=== PATIENT | male | born 1950 | race African-American/Black ===

== ENCOUNTER 2024-09-21 12:01 | Outpatient (CLI) | payer MEDICARE, OTHER, SELFPAY ==
--- NOTE | ~2024-09-21 | PE_ITS ---
EXAMINATION: PET_PETPSMAST_PT DATE: 09/21/2024 14:44 INDICATION: Prostate cancer TECHNIQUE: 5.653 mCi of Illucix Ga-68([id number]) was administered i.v. Low dose computed cristin graphy (CT) images were acquired from the base of the brain to the base of the brain to the proximal thighs for attenuation correction and anatomic localization. Positron emission tomography (PET) image s were acquired in the same distribution beginning 91 minutes after injection. Images including fused PET/CT images were reconstructed in axial, coronal, and sagittal planes. Automated exposure control technique was employed. The dose-length product was 1161.49mGy-cm. COMPARISON: None FINDINGS: Head/neck: Typical pattern of symmetric physiologic increased activity in the lacrimal, parotid and submandibula r glands as well as along the mucosa of the nasal and oral cavities, pharynx and hypopharynx. No path ologically enlarged cervical lymphadenopathy or suspicious foci of increased uptake in the visualized head or neck. Chest: Respiratory motion in the lungs. No suspicious pulmonary nodules, pneumonia, pulmonary edema or other pulmonary infiltrates. No pleural effusion. Cardiomegaly. No pericardial effusion. Thoracic aorta is normal in caliber. No pathologically enlarged or PSMA avid thoracic lymphadenopathy. Abdomen/pelvis/proximal thighs: Physiologic renal accumulation and excretion of activity in the kidneys, bladder and along portions o f ureters. Prostatomegaly measuring 4.9 x 4.1 cm. Small focus of asymmetric mild increased uptake at the left posterior aspect of the enlarged prostate with maximal SUV of 4.9 likely representing the si te of the reported primary prostate cancer. Normal degree and slightly heterogenous pattern of increa sed uptake throughout the liver and spleen without radiologic correlate or dominant PSMA avid lesion. The gallbladder, pancreas and bilateral adrenal glands are normal. Moderate uptake scattered through out the bowels with typical duodenal and proximal jejunal predominance and without radiologic correla te, also likely physiologic. Normal appendix. Moderate-sized fat-containing umbilical hernia. No othe r abnormal foci of increased uptake or pathologically enlarged lymphadenopathy in the abdomen, pelvis or proximal thighs. Musculoskeletal: Mild lumbar levocurvature. Severe spondylosis in the cervical, thoracic and lumbar spine. No suspicio us lytic, blastic or abnormally PSA may avid bone lesions to suggest metastatic disease. IMPRESSION: 1. Small focus of mild uptake at the left posterior aspect of the enlarged prostate consistent with p rimary prostate cancer. No evident metastatic disease. Reviewed, dictated and finalized at location B. IMPRESSION: 1. Small focus of mild uptake at the left posterior aspect of the enlarged pros bryant consistent with primary prostate cancer. No evident metastatic disease.
--- OUTSIDE RECORDS SUMMARY | 2024-09-21 13:24 | XMS_ITS | Encounter Summary ---
Author Organization [facility] Facility Care Team Providers Care Installation Coordinator Name Role Phone Sergei Mello MD Primary Care Provider Tressa Araiza [facility] Unavailable [phone] Encounter Details Date Type Department Care Team (Latest Contact Info) Description 09/06/2017 Orders Only [facility] CLINCONV ProviderJohnson MD [address] [place] [id number] Social History Tobacco Use Types Packs/Day Years Used Date Smoking Tobacco: Never Assessed Sex and Gender Information Value Date Recorded Sex Assigned at Not on file Legal Sex Male 1:24 AM GROUP PRACTICE PEDIATRICIAN Gender Identity Male 08/11/2020 3:44 PM GROUP PRACTICE PEDIATRICIAN Sexual Orientation Straight 08/11/2020 3: 44 PM GROUP PRACTICE PEDIATRICIAN documented as of this encounter Plan of Treatment Not on file documented as of this encounter Procedures Procedure Name Priority Date/Time Associated Diagnosis Comments COLONOSCOPY - SCAN 09/06/2017 12 :00 AM CDT documented in this encounter Results * COLONOSCOPY - SCAN (09/06/2017 12:00 AM CDT) Narrative 09/06/2017 12:00 AM CDT Ordered by an unspecified provider. us Historical Provider Final Res ult documented in this encounter Visit Diagnoses Not on filedocumented in this encounter Care Teams Installation Coordinator Relationship Specialty Start Date End Date Sergei Mello MD [address] [place] [address] PCP - General 08/12/18 Tressa Araiza, REGISTERED VETERINARY TECHNICIAN [address] [place] [address] ACO Care Credit Risk Officer 07/08/20 07/14/20 documented as of this encounter
--- OUTSIDE RECORDS SUMMARY | 2024-09-21 13:24 | XMS_ITS | Clinical Summary ---
Author Organization [facility] Address [address] [place] [address] Care Team Providers Care Excelsior Machine Operator Name Role Phone Unavailable Primary Care Provider Unavailabl e Source Comments [facility],non-owned Affiliates and Associated Physician Practices is amultiple site organization consisting of ambulatory clinics and hospital sitesin [place], [place], [place] and [place]. This disclosure is being madepursuant to the Care Everywhere program and may not contain all information available regarding this patient. Last updated 18.[facility] Social History Tobacco Use Types Packs/Day Years Used Date Smoking Tobacco: Never Assessed Sex and Gender Information Value Date Recorded Sex Assigned at Not on file Gender Identity Not on file Sexual Orientation Not on file Plan of Treatment Health Maintenance Due Date Last Done Comments COLOGUARD (AGES 45-75) - COL ON CA SCREENING 1952 COLON MONITORING 1952 COLONOSCOPY - COLON CA SCREENING 1952 CT COLONOGRAPHY - COLON CA SCREENING 1950 Colorectal Cancer Screening 1952 FIT - COLON CA SCREENING 1952 FLEX SIG - COLON CA SCREENING 1952 LIPID TESTING 1952 MEDICARE AWV 12 MONTHS 1952 HEPATITIS C SCREENING 07/02/1970 DTAP/TDAP/TD VACCINES (1 - Tdap) 1971 PNEUMOCOCCAL VACCINE 50+ (1 of 1 - PCV) 2002 ZOSTER VACCINE (1 of 2) 2002 COVID-19 VACCINE ( - 2023-2 5 season) 2024 INFLUENZA VACCINE (#1) 2024 DEPRESSION SCREENING 06/24/2024 Respiratory Syncytial Virus (RSV) Vaccine Pt: or over 60 yrs (1 - 1-dose 75+ series) 2027 HEPATITIS B VACCINE Aged Out No longe r eligible based on patient's age to complete this topic HIB VACCINE Aged Out No longer eligi ble based on patient's age to complete this topic HPV VACCINE Aged Out No longer eligi ble based on patient's age to complete this topic MENINGOCOCCAL (Group B) VACC INE SHARED DECISION-MAKING Aged Out No longer eligibl e based on patient's age to complete this topic MENINGOCOCCAL GROUPS A/C/Y/W VACCINE Aged Out No longer eligible b ased on patient's age to complete this topic Stefano Thorne Personal/Famil y Self 1950 [address] [place] [address]
--- OUTSIDE RECORDS SUMMARY | 2024-09-21 13:24 | XMS_ITS | Encounter Summary ---
Author Organization [facility] Address [address] [place] [place] [address] Care Team Providers Care Sound Art Instructor Name Role Phone Unavailable Primary Care Provider Unavailabl e Encounter Details Date Type Department Care Team (Late st Contact Info) Description 11/15/2022 Lab Requisition [facility] [address] [facility] [place] [id number] Jesus Sanchez MD [address] [place] [address] Social History Tobacco Use Types Packs/Day Years Used Date Smoking Tobacco: Never Assessed Sex and Gender Information Value Date Recorded Sex Assigned at Not on file Gender Identity Not on file Sexual Orientation Not on file documented as of this encounter Plan of Treatment Not on file documented as of this encounter Procedures Procedure Name Priority Date/Time Associated Diagnosis Comments DERMATOPATHOLOGY Routine 11/13/2022 12:0 0 AM CDT documented in this encounter Results * DERMATOPATHOLOGY (11/13/2022 12:00 AM CDT) Case Report Dermatopathology Report Case: [id number] Authorizing Provider: Jesus Sanchez MD Collected: 11/13/2022 12:00 AM Ordering Location: [facility] Received: 11/15/2022 10:42 AM Pathologist: Hope Hanson MD Specimen: Skin, left index 3 5:55 PM CDT DERMATOPATHOLOGY LABORATORY Final Diagnosis Specimen A. 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 The specimen consists of a shave biopsy measuring 8x8x3 mm. Jar 0. 3 5:55 PM [facility] DERMATOPATHOLOGY LABORATORY Microscopic Description Specimen A. SKIN, left index: Sections show a proliferation of blood vessels in lobules lined by uniform endothelial cells and by fibrous septa. The stroma is edematous and contains a mixed inflammatory cell infiltrate. The overlying epidermis is eroded. 3 5:55 PM T DERMATOPATHOLOGY LABORATORY Disclaimer An external and internal positive and negative controls are appropriate for the histochemical, immunohistochemical and immunofluorescence stain(s) in this case (if any), except where stated explicitly. The performance characteristics of the stain(s) cited in this report were developed and its performance characteristic determined by the Dermatopathology Laboratory at [facility], directed by Dr. Octavio Maravilla. These tests need not be, and therefore are not, approved by the [place] Food and Drug Administration. The tests are used for clinical purposes. Billing Codes Specimen Charges Stain Charges 02249 1 3 5:55 PM CDT DERMATOPATHOLOGY LABORATORY Embedded Images 3 5:55 PM T DERMATOPATHOLOGY LABORATORY Pathology/Cytolog y TISSUE SPECIMEN FROM SKIN / Unknown 11/13/2022 11/15/2022 10:42 AM CDT Jesus Sanchez MD LAB - PATHOLOGY/CYTO LOGY ORDERABLES DERMATOPATHOLOGY LABORATORY [facility] - Department of Dermatology [address], [address] [phone] documented in this encounter Visit Diagnoses Not on filedocumented in this encounter
--- OUTSIDE RECORDS SUMMARY | 2024-09-21 13:24 | XMS_ITS | Clinical Summary ---
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 Name Role Phone Sergei Mello MD Primary Care Provider Allergies Active Allergy Reactions Criticality Noted Date Comments Hydrocodone-Acetaminophen Unknown 09/24/2018 Morphine Other (See comments) Low 02/17/2019 Scratching Oxycodone Hcl Other (See comments) Low 09/24/2018 Scratching Penicillin V Potassium Palpitations Low 09/24/2018 Propoxyphene N-Acetaminophen Other (See comments) Low 09/24/2018 Dry mouth Medications cholecalcifer ol (VITAMIN D-3) 1,000 unit tablet 1 tablet (1,000 Units total) daily Active aspirin 81 mg enteric coated tablet Take 1 tablet (81 mg total) by mouth daily Active triamcinolone (KENALOG) 0.1 % cream 02/16/20 21 Active mupirocin (BACTROBAN) 2 % ointment 03/21/20 21 Active fluticasone propionate (FLONASE) 50 mcg/actuation nasal sprayIndicati ons:Nasal congestion Administer 2 sprays into each nostril daily 3 each 3 03/22/20 22 Active vardenafiL (LEVITRA) 20 mg tablet Take 1 tablet PO prn about 1 hour prior to intercourse. Do not take more than 1 dose in a day. 5 tablet 10/18/19 23 Active Refresh Celluvisc 1 % dropperette,g el Administer 1 drop into both eyes 2 (two) times a day 3 each 3 11/17/19 23 Active Lotemax 0.5 % drops,gel Administer 1 drop into both eyes 2 (two) times a day 3 mL 11/17/19 23 Active clobetasoL (TEMOVATE) 0.05 % ointment Apply topically 2 (two) times a day 30 g 2 01/24/20 23 Active cetirizine (ZyrTEC) 10 mg tablet Take 1 tablet (10 mg total) by mouth daily 90 tablet 1 03/30/20 24 Active furosemide (LASIX) 20 mg tablet Take 1 tablet (20 mg total) by mouth daily 90 tablet 1 03/30/20 24 Active empagliflozin (Jardiance) 25 mg tabletIndicat ions:type 2 diabetes mellitus Take 1 tablet (25 mg total) by mouth daily 90 tablet 1 03/30/20 24 Active telmisartan-h ydrochlorothi azid (MICARDIS HCT) 80-12.5 mg per tablet Take 1 tablet by mouth daily 90 tablet 1 04/01/20 24 Active docusate sodium (COLACE) 100 mg capsule Take 1 capsule (100 mg total) by mouth 2 (two) times a day as needed for constipation 180 capsule 1 04/07/20 24 Active Additional Information Patient not taking.Reported on 08/28/2024 blood glucose diagnostic (glucose blood) stripIndicati ons:Type 2 diabetes mellitus with stage 2 chronic kidney disease, without long-term current use of insulin (HCC) Use to check blood sugar daily 200 each 3 04/20/20 24 025 Active lancets miscIndicatio ns:Type 2 diabetes mellitus with stage 2 chronic kidney disease, without long-term current use of insulin (HCC) Use to check blood sugar daily 200 each 3 04/20/20 24 Active blood-glucose meter miscIndicatio ns:Type 2 diabetes mellitus with stage 2 chronic kidney disease, without long-term current use of insulin (HCC) Use to check blood sugar twice daily 1 each 04/22/20 24 Active omeprazole (PriLOSEC) 40 mg capsule Take 1 capsule (40 mg total) by mouth daily 90 capsule 1 05/04/20 24 Active montelukast (SINGULAIR) 10 mg tablet Take 1 tablet (10 mg total) by mouth daily 90 tablet 1 05/04/20 24 025 Active terbinafine (LamiSIL) 250 mg tablet Take 1 tablet (250 mg total) by mouth daily 90 tablet 05/04/20 24 Active allopurinoL (ZYLOPRIM) 300 mg tablet Take 1 tablet (300 mg total) by mouth daily 90 tablet 1 06/01/20 24 Active pramipexole (MIRAPEX) 0.5 mg tablet Take 1 tablet (0.5 mg total) by mouth nightly 90 tablet 1 06/01/20 24 Active simvastatin (ZOCOR) 40 mg tablet Take 1 tablet (40 mg total) by mouth nightly 90 tablet 06/22/20 24 Active zolpidem (AMBIEN) 10 mg tablet Take 1 tablet (10 mg total) by mouth daily 90 tablet 06/22/20 24 025 Active Dupixent Pen pen injector 08/28/19 25 Active ALPRAZolam (XANAX) 0.5 mg tablet Take 1 tablet (0.5 mg total) by mouth daily as needed for anxiety 90 tablet 09/01/19 25 Active traMADoL (ULTRAM) 50 mg tablet Take 1 tablet (50 mg total) by mouth every 12 (twelve) hours as needed for pain 60 tablet 2 09/01/19 25 025 Active pregabalin (LYRICA) 150 mg capsule Take 1 capsule (150 mg total) by mouth 2 (two) times a day 180 capsule 1 09/02/19 25 025 Active celecoxib (CeleBREX) 200 mg capsule Take 1 capsule (200 mg total) by mouth daily 90 capsule 1 09/02/19 25 Active tirzepatide (Mounjaro) 12.5 mg/0.5 mL pen injector injection Inject 0.5 mL (12.5 mg total) under the skin once a week 2 mL 5 09/02/19 25 Active linaCLOtide (Linzess) 290 mcg capsule TAKE 1 CAPSULE DAILY 100 capsule 1 09/14/19 25 Active traMADoL (ULTRAM) 50 mg tablet Take 1 tablet (50 mg total) by mouth every 12 (twelve) hours as needed for pain 60 tablet 2 02/25/20 24 025 Discontinued(R eorder) celecoxib (CeleBREX) 200 mg capsule Take 1 capsule (200 mg total) by mouth daily 90 capsule 1 02/27/20 24 025 Discontinued(R eorder) pregabalin (LYRICA) 150 mg capsule Take 1 capsule (150 mg total) by mouth 2 (two) times a day 180 capsule 1 02/27/20 24 025 Discontinued(R eorder) tirzepatide (Mounjaro) 12.5 mg/0.5 mL pen injector Inject 12.5 mg under the skin once a week 2 mL 5 03/11/20 24 025 Discontinued(R eorder) linaCLOtide (Linzess) 290 mcg capsule TAKE 1 CAPSULE DAILY 90 capsule 06/15/20 24 025 Discontinued ALPRAZolam (XANAX) 0.5 mg tablet Take 1 tablet (0.5 mg total) by mouth daily as needed for anxiety 90 tablet 08/03/19 25 025 Discontinued(R eorder) Active Problems Problem Noted Date Diagnosed Date Bilateral hand numbness 07/21/2024 Assessment & Plan (07/21/2024 9:55 AM [employer]FF MEMBER): Burning sensation in both hands for about 3 weeks. Exam is normal. Will obtain nerve conduction study of both hands for further evaluation. It is possible he has peripheral neuropathy secondary to diabetes or carpal tunnel syndrome. He is maintained on Lyrica 150 mg b.i.d.. Acute alteration in mental status 05/15/2023 Uncontrolled stage 2 hypertension 05/15/2023 Morbid obesity 05/15/2023 Assessment & Plan (04/20/2024 7:53 AM CDT): BMI Follow-up includes: nutrition counseling. The patient was advised to exercise 5 times a week for 30 minutes each time. We discussed low calorie diet. Discussed lifestyle changes. Assessment & Plan (12/09/2023 1:00 PM CDT): BMI Follow-up includes: nutrition counseling. The patient was advised to exercise 5 times a week for 30 minutes each time. We discussed low calorie diet. Discussed lifestyle changes. Assessment & Plan (08/15/2023 3:59 PM [employer]FF MEMBER): BMI Follow-up includes: nutrition counseling. The patient was advised to exercise 5 times a week for 30 minutes each time. We discussed low calorie diet. Discussed lifestyle changes. Respiratory failure with hypercapnia 05/15/2023 Acute on chronic respiratory failure with hypoxia and hypercapnia 05/15/2023 Dyslipidemia 05/15/2023 Assessment & Plan (07/21/2024 7:50 AM [employer] MEMBER): Continue low-fat diet Assessment & Plan (04/20/2024 7:52 AM CDT): Continue low-fat diet Assessment & Plan (12/09/2023 1:00 PM CDT): Lipid profile is well controlled. Triglyceride is low. Will stop fenofibrate. Continue low fat diet Assessment & Plan (08/15/2023 3:57 PM [employer] MEMBER): Lipid profile is well controlled. Triglyceride is low. Will stop fenofibrate. 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 The patient has CPAP at 12 cm water pressure. The patient and I discussed the inspire in depth. The patient would have to find caregiver for his prior to doing any sleep study/evaluation for inspire. He continues to lose weight and exercise. Assessment & Plan (07/21/2024 7:50 AM [employer]FF MEMBER): Patient uses CPAP machine on regular basis Assessment & Plan (12/09/2023 1:00 PM CDT): Patient uses CPAP machine on regular basis Assessment & Plan (08/15/2023 3:58 PM [employer]FF MEMBER): Patient uses CPAP machine on regular basis Assessment & Plan (08/07/2023 2:04 PM [employer]FF MEMBER): The patient and I discussed the inspire. The patient was informed that he would need a nocturnal polysomnogram to qualify for evaluation for inspire and I have offered an in-home nocturnal polysomnogram due to his 40 lb weight loss. I encouraged the patient to resume CPAP therapy at 12 cm water pressure any time that he is sleeping. I also encouraged the patient to move the CPAP to his preferred sleeping location. The patient is currently caring for his who is on hospice. DME is [employer]. The patient is going to try to resume CPAP therapy. Diabetes mellitus with stage 1 chronic kidney di sease 05/15/2023 Assessment & Plan (07/21/2024 7:50 AM [employer] ST[employer]FF MEMBER): Continue current medications, discussed low carbohydrate diet, advised to exercise on regular basis, advised to have annual eye exam. We will continue to monitor. Assessment & Plan (04/20/2024 7:52 AM CDT): Continue current medications, discussed low carbohydrate diet, advised to exercise on regular basis, advised to have annual eye exam. We will continue to monitor. Assessment & Plan (12/09/2023 12:59 PM CDT): Diabetes is well controlled. Hemoglobin A1c is 5.9. We will stop Januvia and continue Mounjaro and Jardiance Assessment & Plan (08/15/2023 3:57 PM [employer]FF MEMBER): Diabetes is well controlled. Hemoglobin A1c is 5.9. We will stop Januvia and continue Mounjaro and Jardiance Onychomycosis 05/15/2023 Assessment & Plan (05/15/2023 2:27 PM [employer] ST[employer]FF MEMBER): Patient with onychomycosis of toenails. He likes treatment. He tried [id number] lotion that did not help. Will start him on Lamisil 250 mg daily for few months. Side effects explained. Will obtain liver function test before next visit. Idiopathic chronic gout without tophus 3 Viral wart on finger 10/31/2022 Assessment & Plan (10/31/2022 4:35 PM CDT): Patient with a lesion on the dorsal aspect of the left index finger. It could be a wart. There was slight bleeding. Pressure was applied and bleeding stopped. The wound was wrapped. Patient received Tdap vaccine. Will make him a referral to see teletype mechanic for further evaluation of that lesion. Was advised to keep holding aspirin for the time being. Hip pain, chronic, right 07/23/2022 Assessment & Plan (07/23/2022 5:03 PM [employer]FF MEMBER): Will make him a referral to see a chiropractor for possible tendinitis of the right hip. Primary insomnia 12/20/2021 Assessment & Plan (05/15/2023 12:57 PM [employer] STAFF MEMBER): Controlled on Ambien Assessment & Plan (12/20/2021 10:16 AM CDT): Controlled on Ambien Type 2 diabetes mellitus wit h stage 2 chronic kidney disease, without long-term current use of insulin 12/20/2021 Assessment & Plan (07/21/2024 7:51 AM [employer]FF MEMBER): As above Assessment & Plan (12/09/2023 1:00 PM CDT): As above Assessment & Plan (05/15/2023 2:28 PM [employer]FF MEMBER): As above Assessment & Plan (01/23/2023 1:11 PM CDT): As above Assessment & Plan (10/18/2022 2:11 PM CDT): As above Assessment & Plan (07/23/2022 1:11 PM [employer] STAFF MEMBER): Continue current medications, discussed low carbohydrate diet, advised to exercise on regular basis, advised to have annual eye exam. We will continue to monitor. Assessment & Plan (12/20/2021 2:02 PM CDT): Stop Januvia and start Farxiga 10 mg daily for renal protection. Advised to increase fluid intake. Continue to have annual eye exam. Continue to watch diet. Hordeolum externum of left lower eyelid 09/20/19 Assessment & Plan (09/19/2021 1:28 PM CDT): Patient with small stye in the left lower eyelid. He will be started on tobramycin ointment 3 times daily for 7 days Bilateral leg edema 09/19/2021 Assessment & Plan (08/15/2023 3:57 PM [employer] STAFF MEMBER): Controlled on Lasix p.r.n. Assessment & Plan (09/19/2021 1:29 PM CDT): Patient will be started on Lasix 20 mg daily. 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 He has had some modification with sleep apnea machine at this point cites no cognitive issues. He has a normal cognitive examination at this time. Observation from the neurological standpoint would be appropriate. I will see him back in the office on an as-needed basis. Assessment & Plan (07/15/2020 12:13 PM [employer] STAFF MEMBER): Resolved Acute on chronic respiratory failure with hypoxia and hypercapnia 07/15/2020 Assessment & Plan (07/15/2020 12:13 PM [employer] STAFF MEMBER): Resolved and the patient uses CPAP machine on regular basis Abnormal MRI of head 07/15/2020 Assessment & Plan (12/12/2020 3:18 PM CDT): Repeated MRI of the brain was unremarkable. I discussed with the patient repeating the MRI again but he stated that he feels fine and he has no neurological complaints like dizziness or headache. I agree with not repeating the MRI as the patient is asymptomatic. Assessment & Plan (07/15/2020 12:13 PM [employer] ST[employer]FF MEMBER): Repeat MRI in 1 month Elevated PSA 06/09/2020 Assessment & Plan (07/21/2024 9:56 AM [employer]ENN[employer] STAFF MEMBER): PSA continued to be elevated at 6.9. We discussed options again with the patient. He elected to see a urologist because of persistent elevation. Will make him a referral Assessment & Plan (04/20/2024 2:41 PM CDT): Patient has elevated PSA. We discussed options including observation and repeating the test in few months or referral to see a urologist and he elected observation Assessment & Plan (12/09/2023 1:00 PM CDT): Followed by the urologist Assessment & Plan (10/18/2022 2:10 PM CDT): Followed by the urologist Assessment & Plan (12/20/2021 10:16 AM CDT): PSA in November 2021 was 4.2. Patient is asymptomatic Assessment & Plan (09/19/2021 1:28 PM CDT): PSA 3 months ago was 3.3. Will repeat PSA level in 3 months Assessment & Plan (06/19/2021 12:53 PM [employer] ST[employer]FF MEMBER): PSA level is 3.3 Assessment & Plan (09/08/2020 12:52 PM CDT): PSA is 4.1. Patient is asymptomatic. Will repeat PSA Assessment & Plan (06/09/2020 2:26 PM [employer] STAFF MEMBER): PSA is slightly elevated at 4.1. Patient is asymptomatic. We discussed options and patient elected to continue to monitor the PSA and will repeat the test again in 6 months. Sciatica of left side 03/31/2020 Assessment & Plan (04/18/2020 4:58 PM CDT): The patient will start exercises recommended her see a chiropractor for further management of sciatica. If the pain persist we will consider MRI of the lumbar spine for further evaluation. Assessment & Plan (03/31/2020 4:25 PM CDT): Patient has sciatica. Pamphlets were given. He will start Toradol and prednisone. He received Toradol injection. We will hold Celebrex while taking Toradol. Patient was advised to avoid any lifting or pushing or carrying etc.. Patient will call us for persistent pain or if he develops weakness or incontinence. Hypertensive kidney disease with stage 2 chronic kidney disease 12/09/2019 Assessment & Plan (07/21/2024 7:50 AM [employer] STAFF MEMBER): Continue current medications. Discussed low-salt diet. Discussed exercise on regular basis. Will continue to monitor Assessment & Plan (04/20/2024 7:52 AM CDT): Continue current medications. Discussed low-salt diet. Discussed exercise on regular basis. Will continue to monitor Assessment & Plan (12/09/2023 1:00 PM CDT): Continue current medications. Discussed low-salt diet. Discussed exercise on regular basis. Will continue to monitor Assessment & Plan (08/15/2023 3:58 PM [employer] STAFF MEMBER): Continue current medications. Discussed low-salt diet. Discussed exercise on regular basis. Will continue to monitor Assessment & Plan (05/15/2023 12:56 PM [employer] STAFF MEMBER): Continue current medications. Discussed low-salt diet. Discussed exercise on regular basis. Will continue to monitor Assessment & Plan (10/18/2022 12:52 PM CDT): Continue current medications. Discussed low-salt diet. Discussed exercise on regular basis. Will continue to monitor Assessment & Plan (07/23/2022 1:11 PM [employer] STAFF MEMBER): Continue current medications. Discussed low-salt diet. Discussed exercise on regular basis. Will continue to monitor Assessment & Plan (03/22/2022 12:50 PM CDT): Continue current medications. Discussed low-salt diet. Discussed exercise on regular basis. Will continue to monitor Assessment & Plan (12/20/2021 10:15 AM CDT): Continue current medications. Discussed low-salt diet. Discussed exercise on regular basis. Will continue to monitor Assessment & Plan (09/19/2021 12:54 PM CDT): Continue current medications. Discussed low-salt diet. Discussed exercise on regular basis. Will continue to monitor Assessment & Plan (06/19/2021 12:53 PM [employer] STAFF MEMBER): Continue current medications. Discussed low-salt diet. Discussed exercise on regular basis. Will continue to monitor Assessment & Plan (03/13/2021 3:19 PM CDT): Continue current medications. Discussed low-salt diet. Discussed exercise on regular basis. Will continue to monitor Assessment & Plan (12/12/2020 12:59 PM CDT): Continue current medications. Discussed low-salt diet. Discussed exercise on regular basis. Will continue to monitor Assessment & Plan (09/08/2020 12:52 PM CDT): Continue current medications. Discussed low-salt diet. Discussed exercise on regular basis. Will continue to monitor Assessment & Plan (06/09/2020 2:26 PM [employer] STAFF MEMBER): Continue current medications. Discussed low-salt diet. Discussed exercise on regular basis. Will continue to monitor Assessment & Plan (03/10/2020 12:34 PM CDT): Continue current medications. Discussed low-salt diet. Discussed exercise on regular basis. Will continue to monitor Assessment & Plan (12/09/2019 2:04 PM CDT): Continue current medications. Discussed low-salt diet. Discussed exercise on regular basis. Will continue to monitor Meralgia paresthetica of left side 09/09/2019 Assessment & Plan (09/09/2019 2:37 PM CDT): The patient takes tramadol and gabapentin. He was assured that the symptoms will resolve in few weeks on their own. Nasal congestion 06/30/2019 Dermatitis 06/09/2019 Assessment & Plan (03/10/2020 2:42 PM CDT): Small papular lesions on the right forearm which were diagnosed by the teletype mechanic as scar tissues and he will follow-up with dermatology Assessment & Plan (12/09/2019 2:04 PM CDT): The patient has persistent lesion on the right forearm and will make a referral to see a teletype mechanic for further evaluation Assessment & Plan (06/09/2019 2:11 PM [employer] STAFF MEMBER): The patient will be started on TMC cream twice a day and if his symptoms persist he will call us for dermatology referral. Left wrist pain 02/17/2019 Assessment & Plan (02/17/2019 2:36 PM CDT): Patient has persistent pain in the left wrist area on the radial aspect. Examination was unremarkable except for tenderness. Will obtain MRI of the wrist for further evaluation and will consider referring him back to than surgeon after that. The patient will continue to use the wrist brace. Peripheral neuropathy 11/13/2018 Assessment & Plan (07/23/2022 1:11 PM [employer] STAFF MEMBER): Controlled on Lyrica Assessment & Plan (03/22/2022 12:49 PM CDT): Controlled on Lyrica Assessment & Plan (12/20/2021 10:15 AM CDT): Controlled on Lyrica Assessment & Plan (09/19/2021 12:54 PM CDT): Controlled on Lyrica Assessment & Plan (06/19/2021 3:50 PM [employer] STAFF MEMBER): Controlled on Lyrica Assessment & Plan (12/12/2020 12:59 PM CDT): Controlled on Lyrica Assessment & Plan (03/10/2020 12:34 PM CDT): Stable on gabapentin Assessment & Plan (12/09/2019 2:03 PM CDT): Controlled on gabapentin Assessment & Plan (09/09/2019 2:37 PM CDT): Continue gabapentin Assessment & Plan (06/09/2019 2:11 PM [employer]FF MEMBER): Controlled on gabapentin Assessment & Plan (02/16/2019 8:56 PM CDT): Peripheral neuropathy secondary to diabetes mellitus and controlled on gabapentin Assessment & Plan (11/13/2018 3:10 PM CDT): Controlled on gabapentin Diabetic polyneuropathy asso ciated with type 2 diabetes mellitus 11/13/2018 Assessment & Plan (04/20/2024 7:52 AM CDT): Continue current medications, discussed low carbohydrate diet, advised to exercise on regular basis, advised to have annual eye exam. We will continue to monitor. Assessment & Plan (12/09/2023 1:00 PM CDT): Continue current medications, discussed low carbohydrate diet, advised to exercise on regular basis, advised to have annual eye exam. We will continue to monitor. Assessment & Plan (05/15/2023 2:27 PM [employer] STAFF MEMBER): Hemoglobin A1c is 5.5. Stop glimepiride. Continue Mounjaro patient lost weight. discussed low carbohydrate diet, advised to exercise on regular basis, advised to have annual eye exam. We will continue to monitor. Assessment & Plan (01/23/2023 3:14 PM CDT): Hemoglobin A1c 6.2. Will cut down glimepiride to 2 mg daily. Increase Mounjaro to 7.5 mg once a week, discussed low carbohydrate diet, advised to exercise on regular basis, advised to have annual eye exam. We will continue to monitor. Assessment & Plan (10/18/2022 2:11 PM CDT): Hemoglobin A1c is 8.4. We will start patient on Mounjaro 2.5 mg subQ once a week and increase the dose to 5 mg once a week and side effects were explained. Continue other medications, discussed low carbohydrate diet, advised to exercise on regular basis, advised to have annual eye exam. Patient understands the importance of diet and weight loss to keep his sugar under control. We will continue to monitor. Assessment & Plan (07/23/2022 5:01 PM [employer] STAFF MEMBER): Continue current medications, discussed low carbohydrate diet, advised to exercise on regular basis, advised to have annual eye exam. Patient understands the importance of diet and weight loss to keep his sugar under control. We will continue to monitor. Assessment & Plan (03/22/2022 12:49 PM CDT): Continue current medications, discussed low carbohydrate diet, advised to exercise on regular basis, advised to have annual eye exam. We will continue to monitor. Assessment & Plan (12/20/2021 10:15 AM CDT): Continue current medications, discussed low carbohydrate diet, advised to exercise on regular basis, advised to have annual eye exam. We will continue to monitor. Assessment & Plan (09/19/2021 12:54 PM CDT): Continue current medications, discussed low carbohydrate diet, advised to exercise on regular basis, advised to have annual eye exam. We will continue to monitor. Assessment & Plan (06/19/2021 12:53 PM [employer] ST[employer]FF MEMBER): Continue current medications, discussed low carbohydrate diet, advised to exercise on regular basis, advised to have annual eye exam. We will continue to monitor. Assessment & Plan (03/13/2021 3:19 PM CDT): Continue current medications, discussed low carbohydrate diet, advised to exercise on regular basis, advised to have annual eye exam. We will continue to monitor. Assessment & Plan (09/27/2020 11:24 AM CDT): Patient has antecedent history of diabetic peripheral neuropathy manifested as appendicular numbness and sensory ataxia. His examination is consistent with diagnosis. Assessment & Plan (09/08/2020 12:51 PM CDT): Continue current medications, discussed low carbohydrate diet, advised to exercise on regular basis, advised to have annual eye exam. We will continue to monitor. Assessment & Plan (06/09/2020 2:25 PM [employer] STAFF MEMBER): Continue current medications, discussed low carbohydrate diet, advised to exercise on regular basis, advised to have annual eye exam. We will continue to monitor. Assessment & Plan (09/09/2019 2:37 PM CDT): As above Assessment & Plan (06/09/2019 2:11 PM [employer] ST[employer]FF MEMBER): Continue current medications, discussed low carbohydrate diet, advised to exercise on regular basis, advised to have annual eye exam. We will continue to monitor. Assessment & Plan (02/16/2019 8:56 PM CDT): Continue current medications, discussed low carbohydrate diet, advised to exercise on regular basis, advised to have annual eye exam. We will continue to monitor. Assessment & Plan (11/13/2018 3:11 PM CDT): Continue current medications, discussed low carbohydrate diet, advised to exercise on regular basis, advised to have annual eye exam. We will continue to monitor. Other male erectile dysfunction 07/09/2016 Assessment & Plan (10/04/2022 3:24 PM CDT): -We discussed the nature of erectile dysfunction and why it can occur. We discussed that losing weight, eating healthy and exercising would improve overall cardiovascular health which frequently mirrors erectile health. -Failed sildenafil and cialis. Was not effective and caused severe headache. -Discussed options including trial of Levitra, CLEMENTINA, silicone penile ring, Trimix injections, or discussion for IPP. PLAN: -Patient would like to try Levitra first. If not effective, he will consider Trimix injections. Assessment & Plan (07/23/2022 5:02 PM KENNEL STAFF MEMBER): Patient tried Viagra and Cialis and he had reaction with these medications in the form of congestion and headache so he does not want to take them again. Will make him a referral to see a urologist Low back pain 04/09/2016 Osteoarthritis of knees, bilateral 12/28/2015 Assessment & Plan (03/22/2022 12:49 PM CDT): Status post total knee replacement Assessment & Plan (03/13/2021 3:19 PM CDT): Status post bilateral total knee replacement. Patient has persistent pain in his knees specially the right knee. He was seen recently with orthopedic doctor. He is not interested in more surgeries Assessment & Plan (12/12/2020 3:18 PM CDT): Orthopedic referral for persistent pain in the right knee Assessment & Plan (12/09/2019 2:03 PM CDT): Status post bilateral total knee replacement with persistent knee pain Assessment & Plan (06/09/2019 2:11 PM KENNEL STAFF MEMBER): Patient has arthritis of the knees status post knee replacement. The patient was evaluated again by the orthopedic surgeon. He he takes Celebrex as needed. Allergic rhinitis 09/21/2015 Assessment & Plan (06/19/2021 12:52 PM KENNEL STAFF MEMBER): Controlled on Zyrtec and Flonase Assessment & Plan (02/16/2019 8:53 PM CDT): Controlled on current medications Assessment & Plan (11/13/2018 3:08 PM CDT): Controlled on Zyrtec and Flonase GERD (gastroesophageal reflux disease) 6 Assessment & Plan (07/23/2022 1:10 PM KENNEL STAFF MEMBER): Controlled on Prilosec Assessment & Plan (09/19/2021 12:53 PM CDT): Controlled on Prilosec Assessment & Plan (06/19/2021 3:50 PM KENNEL STAFF MEMBER): Controlled on omeprazole Assessment & Plan (03/13/2021 3:19 PM CDT): Controlled on Prilosec Assessment & Plan (06/09/2019 2:10 PM KENNEL STAFF MEMBER): Controlled on Prilosec Assessment & Plan (02/16/2019 8:54 PM CDT): Discussed diet and the patient is controlled on Prilosec Assessment & Plan (11/13/2018 3:09 PM CDT): Controlled on Prilosec Mixed hyperlipidemia 09/21/2015 Assessment & Plan (04/20/2024 7:53 AM CDT): Controlled on current medications. Continue low-fat diet. Will continue to monitor . Assessment & Plan (12/09/2023 1:00 PM CDT): Controlled on current medications. Continue low-fat diet. Will continue to monitor . Assessment & Plan (05/15/2023 12:56 PM K[employer] STAFF MEMBER): Controlled on current medications. Continue low-fat diet. Will continue to monitor . Assessment & Plan (01/23/2023 1:11 PM CDT): Controlled on current medications. Continue low-fat diet. Will continue to monitor . Assessment & Plan (10/18/2022 12:53 PM CDT): Controlled on current medications. Continue low-fat diet. Will continue to monitor . Assessment & Plan (07/23/2022 1:10 PM K[employer] STAFF MEMBER): Controlled on current medications. Continue low-fat diet. Will continue to monitor . Assessment & Plan (03/22/2022 12:49 PM CDT): Controlled on current medications. Continue low-fat diet. Will continue to monitor . Assessment & Plan (12/20/2021 10:14 AM CDT): Controlled on current medications. Continue low-fat diet. Will continue to monitor . Assessment & Plan (09/19/2021 12:53 PM CDT): Controlled on current medications. Continue low-fat diet. Will continue to monitor . Assessment & Plan (06/19/2021 12:52 PM KENNEL STAFF MEMBER): Controlled on current medications. Continue low-fat diet. Will continue to monitor . Assessment & Plan (03/13/2021 3:19 PM CDT): Controlled on current medications. Continue low-fat diet. Will continue to monitor . Assessment & Plan (12/12/2020 12:59 PM CDT): Controlled on current medications. Continue low-fat diet. Will continue to monitor . Assessment & Plan (09/08/2020 12:52 PM CDT): Controlled on current medications. Continue low-fat diet. Will continue to monitor . Assessment & Plan (06/09/2020 2:26 PM KENNEL STAFF MEMBER): Controlled on current medications. Continue low-fat diet. Will continue to monitor . Assessment & Plan (03/10/2020 12:34 PM CDT): Controlled on current medications. Continue low-fat diet. Will continue to monitor . Assessment & Plan (12/09/2019 2:06 PM CDT): Controlled on current medications. Continue low-fat diet. Will continue to monitor . Assessment & Plan (09/09/2019 2:36 PM CDT): Controlled on current medications. Continue low-fat diet. Will continue to monitor . Assessment & Plan (06/09/2019 2:10 PM KENNEL STAFF MEMBER): Controlled on current medications. Continue low-fat diet. Will continue to monitor . Assessment & Plan (02/16/2019 8:54 PM CDT): Controlled on current medications. Continue low-fat diet. Will continue to monitor . Assessment & Plan (11/13/2018 3:09 PM CDT): Controlled on current medications. Continue low-fat diet. Will continue to monitor . Hypogonadism in male 09/21/2015 Assessment & Plan (10/18/2022 12:52 PM CDT): Patient does not take hormonal therapy Assessment & Plan (09/19/2021 12:53 PM CDT): Patient is not on hormonal therapy Assessment & Plan (06/19/2021 3:50 PM KENNEL STAFF MEMBER): Patient is not on hormonal therapy Assessment & Plan (06/09/2020 2:27 PM K[employer] STAFF MEMBER): Patient is not on hormonal therapy Assessment & Plan (09/09/2019 2:36 PM CDT): The patient is not on hormonal therapy Assessment & Plan (06/09/2019 2:10 PM KENNEL STAFF MEMBER): The patient uses hormonal gel every other day and he feels fine with current does Assessment & Plan (02/16/2019 8:55 PM CDT): The patient is maintained on Fortesta and he feels well with no problems and increase energy and will continue to monitor. Resolved Problems Problem Noted Date Diagnosed Date Resolved Date JAY (obstructive sleep apnea) 09/21/2015 08/07/2023 Assessment & Plan (05/15/2023 12:57 PM KENNEL STAFF MEMBER): Continue to use CPAP machine on regular basis Assessment & Plan (01/23/2023 1:11 PM CDT): Continue to use CPAP machine on regular basis Assessment & Plan (10/18/2022 12:53 PM CDT): Continue to use CPAP machine on regular basis Assessment & Plan (07/23/2022 1:11 PM KENNEL STAFF MEMBER): Continue to use CPAP machine on regular basis Assessment & Plan (03/22/2022 12:49 PM CDT): Uses CPAP machine on regular basis Assessment & Plan (03/14/2022 2:27 PM CDT): Due to the elevated AHI, I have increased the pressure to 12 cm water pressure. Due to the humidifier being too high, I sent an order over for the humidity to put on auto. DME [employer]. Patient was educated on the need to wear the CPAP machine at least 4 hours a night on 70% of the nights. Assessment & Plan (12/20/2021 10:14 AM CDT): Patient uses CPAP machine on regular basis Assessment & Plan (09/19/2021 12:54 PM CDT): Patient uses CPAP machine on regular basis Assessment & Plan (06/19/2021 12:54 PM K[employer]EL STAFF MEMBER): Patient uses CPAP machine on regular basis Assessment & Plan (03/13/2021 3:19 PM CDT): Patient uses CPAP machine on regular basis Assessment & Plan (03/08/2021 3:01 PM CDT): The patient continues to benefit from the CPAP at 10 cm water pressure. His DME supplier is [employer]. I did ask him to call the supplier be certain that his new unit is properly program. He will follow-up with me in 1 year. Assessment & Plan (12/12/2020 12:59 PM CDT): Patient uses CPAP machine on regular basis Assessment & Plan (09/08/2020 12:52 PM CDT): Maintained on CPAP machine and followed by the sleep specialist Assessment & Plan (09/07/2020 2:48 PM CDT): Due to the elevated AHI will increase the CPAP pressure to 10 cm of water pressure while sleeping. His DME is [email or web address]. Assessment & Plan (07/15/2020 12:13 PM KENNEL STAFF MEMBER): Patient uses CPAP machine now on regular basis and he has follow-up with the Sleep specialist Assessment & Plan (04/20/2020 2:26 PM CDT): I have ordered the patient a new CPAP machine at 8 cm water pressure with heated humidity. A new smart card for his CPAP machine at 8 cm water pressure. I have also supply the patient with a new order for supplies. The DME company is [email or web address]. The patient and I also discussed the possible need of a nocturnal polysomnogram with split night protocol,no MSLT if the insurance company requires. Procedure and expectations were detailed in depth. The patient is willing to follow through with the nocturnal polysomnogram if the insurance requires. The patient also was educated on the need for COVID-19 testing prior to the procedure. The patient is willing to follow through with the testing if the insurance does require a nocturnal polysomnogram. The patient is benefitting from CPAP therapy. Assessment & Plan (03/10/2020 12:34 PM CDT): Patient uses CPAP machine on regular basis Assessment & Plan (12/09/2019 2:03 PM CDT): Patient is compliant with CPAP machine Assessment & Plan (09/09/2019 2:37 PM CDT): The patient uses CPAP machine on regular basis Assessment & Plan (06/09/2019 2:10 PM K[employer] STAFF MEMBER): The patient is compliant with CPAP machine Assessment & Plan (02/16/2019 8:56 PM CDT): The patient uses CPAP machine on regular basis Assessment & Plan (11/13/2018 3:09 PM CDT): The patient is compliant with CPAP machine Encounters Date Type Department Care Team Description 08/31/2024 Telephone [facility] Medical [facility] Internal Medicine [address] [place] [address] [address] [place] [address] Sergei Mello MD 08/28/2024 10:00 AM K[employer] STAFF MEMBER Office Visit [facility] Pulmonology [address] [place] [address] [address] [place] [address] Mariela Ferrell NP Obstructive sleep apnea syndrome (Primary Dx) 08/17/2024 11:00 AM KENNEL STAFF MEMBER Therapy [facility] OP Physical Therapy [address] [place] [address] [address] [place] [address] Bilateral hand numbness 07/21/2024 9:15 AM KENN[employer] STAFF MEMBER Office Visit [facility] Internal Medicine [address] [place] [address] [place] [id number] Sergei Mello MD Diabetes mellitus with stage 1 chronic kidney disease (HCC) (Primary Dx); Dyslipidemia; Elevated PSA; Hypertensive kidney disease with stage 2 chronic kidney disease; Obstructive sleep apnea syndrome; Type 2 diabetes mellitus with stage 2 chronic kidney disease, without long-term current use of insulin (HCC); BMI 37.0-37.9, adult; Bilateral hand numbness 07/17/2024 12:40 PM KENNEL STAFF MEMBER Lab [facility] Lab [address] [place] [address] Elevated PSA; Dyslipidemia; Diabetic polyneuropathy associated with type 2 diabetes mellitus (HCC) from Last 3 Months Immunizations Immunization Administration Dates Next Due Influenza, Quadrivalent, Hig h Dose, Preservative Free, Intrr 05/13/2023,03/22/2022,03/13/2021,03/10 Influenza, Quadrivalent, Spl it, Intramuscular 04/08/2017,04/09/2016 Influenza, Trivalent, High D ose, Split, Preservative Free, Intramuscular 04/20/2024,06/09/2019,04/24/2018 Pfizer SARS-CoV-2 Monovalent Vaccination (12+ Yrs) PURPLE 09/16/2020,08/28/2020 Pneumococcal Conjugate PCV 13 12/09/2019 Pneumococcal Polysaccharide PPV23 07/08/2017 RSV, Bivalent, Protein Subun it Rsvpref, Diluent (Abrysvo) 05/13/2023 Tdap 10/31/2022 ZOSTER Recombinant 11/20/2023,09/10/2023, 018 Surgical History Surgery Date Site/Laterality Comments JOINT REPLACEMENT CATARACT EXTRACTION, BILATERAL WISDOM TOOTH EXTRACTION 06/24/1975 - 06/23/1976 KNEE SURGERY 06/24/1993 - 06/23/1994 arthroscopic right knee REPLACEMENT TOTAL KNEE 06/24/2003 - 06/23/2004 left REPLACEMENT TOTAL KNEE 03/24/2009 - 04/23/2009 right knee TEAR DUCT SURGERY 10/22/2009 - 11/21/2009 KNEE ARTHROSCOPY W/ LATERAL RELEASE 12 years CATARACT EXTRACTION 3 yrs ago Medical History Medical History Date Comments Hypertension Diabetes mellitus (HCC) Hyperlipidemia GERD (gastroesophageal reflux disease) Obesity Hypogonadism in male JAY (obstructive sleep apnea) Allergic rhinitis Osteoarthritis Anxiety Years ago Osteoporosis Glaucoma Family History Medical History Relation Name Comments Arthritis Brother 1 Evelia Thorne Cancer Brother 1 Evelia Thorne No Known Problems Brother 2 No Known Problems Brother 3 Blindness Brother 4 Hunter Ge Fadumo Diabetes Brother 4 Hunter A Fadumo Hypertension Brother 4 Hunter A Thorne Dementia Father Grant Thorne Heart disease Father Grant Thorne Heart disease Mother Jeremy Thorne Diabetes Sister 1 Liang Thorne Diabetes Sister 2 Evelia Thorne Relation Name Status Comments Brother 1 Josemicky Thorne Brother 2 Brother 3 Brother 4 Hunter Thorne Alive Father Grant Thorne Mother Jeremy Thorne Sister 1 Liang Thorne Sister 2 Evelia Thorne Social History Tobacco Use Types Packs/Day Years Used Date Smoking Tobacco: Never Smokeless Tobacco: Never Tobacco Cessation:Counseling Given: Not Answered Alcohol Use Standard Drinks/Week Comments Not Currently 0 (1 standard drink = 0.6 oz pur e alcohol) AUDIT-C Answer Date Recorded Q1: How often do you have a drink containing alcohol? Never 07/21/2024 Q2: How many drinks containi ng alcohol do you have on a typical day when you are drinking? Patient does not drink Q3: How often do you have si x or more drinks on one occasion? Never 07/21/2024 PHQ-2 Answer Date Recorded PHQ-2 Total Score (If total score is 3 or more points, staff should administer the PHQ-9) 0 07/21/2024 PRAPARE - Transportation Answer Date Re corded In the past 12 months, has l ack of transportation kept you from medical appointments or from getting medications? No 06/25 In the past 12 months, has l ack of transportation kept you from meetings, work, or from getting things needed for daily living? No 07/15/2020 Personal Safety Answer Date Recorded Have you ever been in or are you currently in a harmful physical or emotional relationship or is someone making you feel afraid or unsafe? Denies 10/27/2022 Sex and Gender Information Value Date Recorded Sex Assigned at Not on file Legal Sex Male 1:24 AM KENNEL STAFF MEMBER Gender Identity Male 08/11/2020 3:44 PM KENNEL STAFF MEMBER Sexual Orientation Straight 08/11/2020 3: 44 PM KENNEL STAFF MEMBER Obstetrics History Last Filed Vital Signs Vital Sign Reading Time Taken Comments Blood Pressure 118/76 08/28/2024 10:13 AM KENNEL STAFF MEMBER Pulse 52 08/28/2024 10:13 AM KENNEL STAFF MEMBER Temperature 36.6 C (97.9 F) 08/28/2024 10:13 AM KENNEL STAFF MEMBER Respiratory Rate 18 08/28/2024 10:13 AM KENNEL STAFF MEMBER Oxygen Saturation 99% 08/28/2024 10:13 AM KENNEL STAFF MEMBER Inhaled Oxygen Concentration - - Weight 110 kg (242 lb 9.6 oz) 08/28/2024 10:13 A M [employer]EL STAFF MEMBER Height 167.6 cm (5' 6 ) 08/28/2024 10:13 AM KENNEL STAFF MEMBER Body Mass Index 39.16 08/28/2024 10:13 AM KENNEL STAFF MEMBER Plan of Treatment Health Maintenance Due Date Last Done Comments Hepatitis B Screening 1968 Foot Exam 02/21/2024 02/20/2023, 02/23, 03/13/2021, Additional history exists Covid-19 Vaccine (2023-07 5 season) 2024 05/13/2023, 11/10/2021, 06/12/2021, Additional history exists Albumin Creatinine Ratio, Urine 12/05/2024 12/06/2023, 06/13/2022, 06/01/2021, Additional history exists Hemoglobin A1C 01/14/2025 07/17/2024, 11/22, 08/14/2023, Additional history exists Dilated Eye Exam 05/27/2025 05/27/2024, , 04/03/2022, Additional history exists Lipid Panel 07/17/2025 07/17/2024, 11/22, 08/14/2023, Additional history exists eGFR 07/17/2025 07/17/2024, 02/22, 12/06/2023, Additional history exists Depression Screening 07/21/2025 07/21/2024, 04/20/2024, 12/09/2023, Additional history exists Fall Risk Assessment 07/21/2025 07/21/2024, 04/20/2024, 12/09/2023, Additional history exists Well Visit 65+ 07/21/2025 07/21/2024, 04/25, 03/22/2022, Additional history exists Prostate Cancer Screening-PSA 07/17/2026, 03/09/2024, 12/12/2021, Additional history exists DTaP/Tdap/Td Vaccine (2 - Td or Tdap) 10/31/2032 10/31/2022 Colon Cancer Screening-Colonoscopy 10/20/2033 10/21/2023, 10/17/2017 Pneumococcal vaccine 65+ Completed 12/09/2019, 06/24 Hepatitis C Screening Completed 06/06/2020 Colon Cancer Screening-CT Colonography Discontinued 10/21/2023, 10/17/2017 Colon Cancer Screening-DNA Stool Discontinued 10/21/19, 10/17/2017 Colon Cancer Screening-FIT Discontinued 10/21/2023, Colon Cancer Screening-Sigmoidoscopy Discontinued 10/21/2023, 10/17/2017 Zoster Vaccine Completed 11/20/2023, 08/22, 07/08/2017 Influenza Vaccine Completed 04/20/2024, , 03/22/2022, Additional history exists Procedures Procedure Name Priority Date/Time Associated Diagnosis Comments EGFR Routine 07/17/2024 12:49 PM KENNEL STAFF MEMBER Dyslipidemia LIPID PANEL Routine 07/17/2024 12:49 PM KENNEL STAFF MEMBER Diabetic polyneuropathy associated with type 2 diabetes mellitus (HCC) HEMOGLOBIN A1C Routine 07/17/2024 12:49 PM KENNEL STAFF MEMBER Diabetic polyneuropathy associated with type 2 diabetes mellitus (HCC) Dyslipidemia COMPREHENSIVE METABOLIC PANEL Routine 07/17/2024 12:49 PM KENNEL STAFF MEMBER Dyslipidemia PSA SCREEN Routine 07/17/2024 12:49 PM KENNEL STAFF MEMBER Elevated PSA HM DIABETES EYE EXAM Routine 05/27/2024 11:27 AM KENNEL STAFF MEMBER ALBUMIN CREATININE RATIO, URINE Routine 12/06/2023 12:52 PM CDT Diabetes mellitus with stage 1 chronic kidney disease (HCC) COLONOSCOPY Routine 10/21/2023 3:05 PM CDT HM DIABETES FOOT EXAM Routine 02/20/2023 HEPATITIS C ANTIBODY Routine 06/06/2020 1:01 PM KENNEL STAFF MEMBER Encounter for hepatitis C screening test for low risk patient from Last 3 Months or Most Recently Relevant to Health Maintenance Results * eGFR (07/17/2024 12:49 PM KENNEL STAFF MEMBER) eGFR 73 >=60 mL/min/1. 73 m2 Comment: Interpretive Data Reference Interval Normal >/= 90 mL/min/1.73m2 Mildly decreased* 60 - 89 mL/min/1.73m2 Mildly to moderately decreased 45 - 59 mL/min/1.73m2 Moderately to severely decreased 30 - 44 mL/min/1.73m2 Severely decreased 15 - 29 mL/min/1.73m2 Kidney Failure < 15 mL/min/1.73m2 *Relative to young adult level Estimated glomerular filtration rate is determined by the 2020 CKD-EPI equation recommended by the National Kidney Foundation (A Unifying Approach to GFR Estimation: Recommendations of the NKF-ASK Task Force on Reassessing the Inclusion of Race in Diagnosing Kidney Disease, JASN 2020). The CKD-EPI equation should not be used for patients with unstable renal function and has not been validated in children and those over 70. Current interpretive data was last reviewed 2021. Blood 07/17/2024 12:4 9 PM KENNEL STAFF MEMBER 07/17/2024 12:52 PM KENNEL STAFF MEMBER Sergei Mello MD LAB BLOOD ORDERABLES Final Result Performing Organization Address [facility] Co de Phone Number [place] [phone] [facility] [place] [address] * (ABNORMAL) PSA screen (07/17/2024 12:49 PM KENNEL STAFF MEMBER) PSA-Total 6.97(H) <=6.20 ng/mL Comment: Interpretive Data AGE SEX REFERENCE INTERVAL 0 minutes-150 years Female None 0 minutes-49 years Male None 50-59 years Male 0-3.90 60-69 years Male 0-5.40 70-79 years Male 0-6.20 80-150 years Male 0-6.20 The Britt PSA Total assay procedure was used. Results from different manufacturers or methods may not be comparable. Serial testing should be performed using the same method. Current interpretive data last revised 21. Blood 07/17/2024 12:4 9 PM KENNEL STAFF MEMBER 07/17/2024 12:52 PM KENNEL STAFF MEMBER Sergei Mello MD LAB BLOOD ORDERABLES Final Result Performing Organization Address [facility] Co de Phone Number [place] [phone] [facility] [place] [address] * (ABNORMAL) Hemoglobin A1c (07/17/2024 12:49 PM KENNEL STAFF MEMBER) Hgb A1C 5.7(H) 4.0 - 5.6 % Estimated Average Glucose 117 mg/dL ALEXEY BEYER Comment: The ADA recommends reporting an estimated Average Glucose (eAG) with all Hemoglobin A1c results using the equation derived from a study of 507 normal and diabetic adults. Minority populations were underrepresented and children were not included. (Diabetes Care 31:7479-8577, 2008). The eAG is not equivalent to a fasting glucose. Blood 07/17/2024 12:4 9 PM KENNEL STAFF MEMBER 07/17/2024 12:52 PM KENNEL STAFF MEMBER Sergei Mello MD LAB BLOOD ORDERABLES Final Result [address] [facility] Department [place] [address] * Lipid panel (07/17/2024 12:49 PM KENNEL STAFF MEMBER) Cholesterol 125 30 - 199 mg/dL Comment: Interpretive Data Ages < or = 19 years Acceptable: <170 mg/dL Borderline high: 170-199 mg/dL High: >or= 200 mg/dL Ages > or = 20 years Desirable: <200 mg/dL Borderline high: 200-239 mg/dL High: >or= 240 mg/dL Literature References: 1. Expert Panel on Integrated Guidelines for Cardiovascular Health and Risk Reduction in Children and Adolescents. Pediatrics 2011;128:S213 2. NCEP Expert Panel. Circulation 2004;110:227 Current Interpretive Data was last revised on 2018. Triglycerides 90 <=149 mg/dL ALEXEY Comment: Interpretive Data Ages < or = 9 years Acceptable: <75 mg/dL Borderline high: 75-99 mg/dL High: >or= 100 mg/dL Ages 10 to 20 years Acceptable: <90 mg/dL Borderline high: 90-129 mg/dL High: >or= 130 mg/dL Ages > or = 20 years Desirable: <150 mg/dL Borderline high: 150-199 mg/dL High: 200-499 mg/dL Very high: >or= 499 mg/dL Literature References: 1. Expert Panel on Integrated Guidelines for Cardiovascular Health and Risk Reduction in Children and Adolescents. Pediatrics 2011;128:S213 2. NCEP Expert Panel. Circulation 2004;110:227 Current Interpretive Data was last revised on 2018. HDL 50 >=40 mg/dL ALEXEY BEYER Comment: Interpretive Data Ages < or = 19 years Acceptable: >45 mg/dL Borderline low: 40-45 mg/dL Low: <40 mg/dL Ages > or = 20 years Desirable: >or= 60 mg/dL Low: <40 mg/dL Literature References: 1. Expert Panel on Integrated Guidelines for Cardiovascular Health and Risk Reduction in Children and Adolescents. Pediatrics 2011;128:S213 2. NCEP Expert Panel. Circulation 2004;110:227 Current Interpretive Data was last revised on 2018. LDL, calculated 58 <=129 mg/dL ALEXEY BEYER Comment: Interpretive Data Ages < or = 19 years Acceptable: <110 mg/dL Borderline high: 110-129 mg/dL High: >or= 130 mg/dL Ages > or = 20 years Optimal: <100 mg/dL Near optimal: 100-129 mg/dL Borderline high: 130-159 mg/dL High: >160 mg/dL Calculated using the Danny LDL-C estimating equation. This equation was implemented on 2024. Prior to this date LDL-C was estimated using the Friedewald equation. Literature References: 1. Expert Panel on Integrated Guidelines for Cardiovascular Health and Risk Reduction in Children and Adolescents. Pediatrics 2011;128:S213 2. NCEP Expert Panel. Circulation 2004;110:227 3. Danny Valiente et al. RADHA Cardiol. 2019October 22;5(5):540-548. doi: 10.1001/[email or web address] Current Interpretive Data was last revised on 2024. Non-HDL Cholesterol 75 mg/dL ALEXEY BEYER Comment: Interpretive Data Ages < or = 19 years Acceptable: <120 mg/dL Borderline high: 120-144 mg/dL High: >145 mg/dL Ages > or = 20 years When triglycerides are >200 mg/dL, Non-HDL cholesterol is a secondary target of therapy with treatment goals that are 30 mg/dL greater than the LDL cholesterol target. Literature References: 1. Expert Panel on Integrated Guidelines for Cardiovascular Health and Risk Reduction in Children and Adolescents. Pediatrics 2011;128:S213 2. NCEP Expert Panel. Circulation 2004;110:227 Current Interpretive Data was last revised on 2018. Chol/HDL ratio 2 ALEXEY BEYER Blood 07/17/2024 12:4 9 PM KENNEL STAFF MEMBER 07/17/2024 12:52 PM KENNEL STAFF MEMBER Narrative ALEXEY - 07/17/2024 1:29 PM KENNEL STAFF MEMBER Has the patient been fasting for 8 hours or more?->Yes Sergei Mello MD LAB BLOOD ORDERABLES Final Result [facility] [address] [facility] Department [place] [address] * (ABNORMAL) Comprehensive metabolic panel (07/17/2024 12:49 PM [employer]ENNEL STAFF MEMBER) Pathologist [facility] Sodium 141 135 - 145 mmol/L Potassium, pl 4.2 3.3 - 4.9 mmol/L [facility] Chloride 103 97 - 110 mmol/L [facility] CO2 28 22 - 32 mmol/L [facility] Anion gap 10 2 - 15 mmol/L [facility] BUN 14 6 - 25 mg/dL [facility] Creatinine 1.08 0.80 - 1.30 mg/dL [facility] Glucose 103 70 - 199 mg/dL [facility] Comment: Interpretive Data Fasting glucose >/= 126 mg/dl is diagnostic for diabetes. Fasting is defined as no caloric intake for at least 8 hours. Fasting glucose between 100 mg/dl to 125 mg/dl is diagnostic of prediabetes. In a patient with classic symptoms of hyperglycemia or hyperglycemic crisis, a random glucose >/= 200 mg/dl is diagnostic for diabetes. In the absence of unequivocal hyperglycemia, results should be confirmed by repeat testing. The classification and Diagnosis of Diabetes Diabetes Care 202; 46: S19-S40. Current interpretive data was last revised 2022. Calcium 10.4(H) 8.5 - 10.3 mg/dL [facility] Bilirubin, total 0.7 0.1 - 1.2 mg/dL [facility] Protein, pl 7.4 6.5 - 8.5 g/dL [facility] Albumin 4.5 3.5 - 5.0 g/dL [facility] Alk phos 88 40 - 130 Units/L [facility] ALT 18 7 - 55 Units/L [facility] AST 24 10 - 50 Units/L [facility] Blood 07/17/2024 12:4 9 PM [employer]BER 07/17/2024 12:52 PM [employer]BER Sergei Mello MD LAB BLOOD ORDERABLES Final Result Performing Organization Address [facility] Co de Phone Number [facility] [place] [address] * HM DIABETES EYE EXAM (05/27/2024 11:27 AM [employer] STAFF MEMBER) SCRIBED DIABETIC DILATED EYE EXAM Normal Historical Provider HEALTH MAINTENANCE Final Result * Albumin Creatinine Ratio, Urine (12/06/2023 12:52 PM CDT) Albumin Ur 17.2 mg/L Comment: Interpretive Data No reference range established. Current interpretive data was last revised 2018. Creatinine Ur 295.0 mg/dL [facility] Comment: Interpretive Data No reference range established. Current interpretive data was last revised 2018. Albumin Creatinine Ratio, Ur 6 1 - 29 mg/g [facility] Urine 12/06/2023 12:5 2 PM CDT 12/06/2023 1:21 PM CDT Sergei Mello MD LAB URINE ORDERABLES Final Result Performing Organization Address [facility] Co de Phone Number [address] [facility] [address] * Colonoscopy (10/21/2023 3:05 PM CDT) Anatomical Region Laterality Modality Other Historical Provider ENDOSCOPY PROCEDURES Jennifer l Result * (ABNORMAL) DIABETES FOOT EXAM (02/20/2023) Radhas Ted Lerma - 02/20/[address] of [address] Lee Historical Provider HEALTH MAINTENANCE Final Result * Hepatitis C antibody (06/06/2020 1:01 PM [employer]FF MEMBER) Hep C Ab NONREACT NONREACTIVE [facility] Comment: Siemens CentaurXP using DANIELLE (chemiluminescent immunoassay) technology. NONREACTIVE: Antibodies to Hepatitis C not detected. This does not exclude early acute Hepatitis C infection, possibility of exposure to Hepatitis C, antibodies below detection limit, or to lack of antibody reactivity to the antigen used in this assay. EQUIVOCAL: Antibodies to Hepatitis C may or may not be present. Sample to be confirmed by real-time PCR method. REACTIVE: Antibodies to Hepatitis C detected.Sample to be confirmed by real-time PCR method. Blood specimen (specimen) 06/06/2020 1:01 PM [employer] ST[employer]FF MEMBER 06/06/2020 1:19 PM [employer] ST[employer]FF MEMBER Narrative Resulting Agency Comment CLI Sergei Mello MD LAB MICROBIOLOGY - GENERAL ORDERABLES Final Result [facility] [address] [place], [place] [id number] [place] [address] from Last 3 Months or Most Recently Relevant to Health [place] [address] MEDICARE [employer] CHOICE MEDICARE PPO MEDICARE FOR LIFE Care Teams Asbestos Surveyor Relationship Specialty Start Date End Date Sergei Mello MD [address] [facility] [address] [address] PCP - General 08/12/18
--- OUTSIDE RECORDS SUMMARY | 2024-09-21 13:24 | XMS_ITS | Referral Summary ---
Author Organization [facility] Address [facility] [place] [address] Care Team Providers Care Marklogic Developer Name Role Phone Sergei Mello MD Primary Care Provider Encounters Date Type Department Care Team Description 08/31/2024 Telephone [facility] Internal Medicine [address] [place] [address] [address] [place] [address] Sergei Mello MD 08/28/2024 10:00 AM FILLER BLENDER Office Visit [facility] Pulmonology [address] [place] [address] [address] [place] [address] Mariela Ferrell NP Obstructive sleep apnea syndrome (Primary Dx) 08/17/2024 11:00 AM FILLER BLENDER Therapy [facility] OP Physical Therapy [address] [place] [address] [address] [place] [address] Bilateral hand numbness 07/21/2024 9:15 AM FILLER BLENDER Office Visit [facility] Internal Medicine [address] [place] [address] [address] [place] [address] Sergei Mello MD Diabetes mellitus with stage 1 chronic kidney disease (HCC) (Primary Dx); Dyslipidemia; Elevated PSA; Hypertensive kidney disease with stage 2 chronic kidney disease; Obstructive sleep apnea syndrome; Type 2 diabetes mellitus with stage 2 chronic kidney disease, without long-term current use of insulin (HCC); BMI 37.0-37.9, adult; Bilateral hand numbness 07/17/2024 12:40 PM FILLER BLENDER Lab [facility] Lab [address] [place] [id number] Elevated PSA; Dyslipidemia; Diabetic polyneuropathy associated with type 2 diabetes mellitus (HCC) from Last 3 Months Allergies Active Allergy Reactions Criticality Noted Date [...] 07/21/2024 Assessment & Plan (07/21/2024 9:55 AM FILLER BLENDER): Burning sensation in both hands for about [...] changes. Assessment & Plan (08/15/2023 3:59 PM FILLER BLENDER): BMI Follow-up includes: nutrition counseling. The patient was advised to exercise 5 times a week for 30 minutes each time. We discussed low calorie diet. Discussed lifestyle changes. Respiratory failure with hypercapnia 05/15/2023 Acute on chronic respiratory failure with hypoxia and hypercapnia 05/15/2023 Dyslipidemia 05/15/2023 Assessment & Plan (07/21/2024 7:50 AM FILLER BLENDER): Continue low-fat diet Assessment & Plan (04/20/2024 7:52 AM CDT): Continue low-fat diet Assessment & Plan (12/09/2023 1:00 PM CDT): Lipid profile is well controlled. Triglyceride is low. Will stop fenofibrate. Continue low fat diet Assessment & Plan (08/15/2023 3:57 PM FILLER BLENDER): Lipid profile is well controlled. Triglyceride is low. Will stop fenofibrate. 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 The patient has CPAP at 12 cm water pressure. The patient and I discussed the inspire in depth. The patient would have to find caregiver for his prior to doing any sleep study/evaluation for inspire. He continues to lose weight and exercise. Assessment & Plan (07/21/2024 7:50 AM FILLER BLENDER): Patient uses CPAP machine on regular basis Assessment & Plan (12/09/2023 1:00 PM CDT): Patient uses CPAP machine on regular basis Assessment & Plan (08/15/2023 3:58 PM FILLER BLENDER): Patient uses CPAP machine on regular basis Assessment & Plan (08/07/2023 2:04 PM FILLER BLENDER): The patient and I discussed the inspire. [...] his who is on hospice. DME is [facility]. The patient is going to try to resume CPAP therapy. Diabetes mellitus with stage 1 chronic kidney di sease 05/15/2023 Assessment & Plan (07/21/2024 7:50 AM FILLER BLENDER): Continue current medications, discussed low carbohydrate diet, [...] Jardiance Assessment & Plan (08/15/2023 3:57 PM FILLER BLENDER): Diabetes is well controlled. Hemoglobin A1c is 5.9. We will stop Januvia and continue Mounjaro and Jardiance Onychomycosis 05/15/2023 Assessment & Plan (05/15/2023 2:27 PM FILLER BLENDER): Patient with onychomycosis of toenails. He likes treatment. He tried hbqd-afd-[id number] lotion that did not help. Will start [...] Will make him a referral to see supply chain manager for further evaluation of that lesion. Was advised to keep holding aspirin for the time being. Hip pain, chronic, right 07/23/2022 Assessment & Plan (07/23/2022 5:03 PM FILLER BLENDER): Will make him a referral to see a chiropractor for possible tendinitis of the right hip. Primary insomnia 12/20/2021 Assessment & Plan (05/15/2023 12:57 PM FILLER BLENDER): Controlled on Ambien Assessment & Plan (12/20/2021 10:16 AM CDT): Controlled on Ambien Type 2 diabetes mellitus wit h stage 2 chronic kidney disease, without long-term current use of insulin 12/20/2021 Assessment & Plan (07/21/2024 7:51 AM FILLER BLENDER): As above Assessment & Plan (12/09/2023 1:00 PM CDT): As above Assessment & Plan (05/15/2023 2:28 PM FILLER BLENDER): As above Assessment & Plan (01/23/2023 1:11 PM CDT): As above Assessment & Plan (10/18/2022 2:11 PM CDT): As above Assessment & Plan (07/23/2022 1:11 PM FILLER BLENDER): Continue current medications, discussed low carbohydrate diet, [...] 09/19/2021 Assessment & Plan (08/15/2023 3:57 PM FILLER BLENDER): Controlled on Lasix p.r.n. Assessment & Plan (09/19/2021 1:29 PM CDT): Patient will be started on Lasix 20 mg daily. 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 He has had some modification with sleep apnea machine at this point cites no cognitive issues. He has a normal cognitive examination at this time. Observation from the neurological standpoint would be appropriate. I will see him back in the office on an as-needed basis. Assessment & Plan (07/15/2020 12:13 PM FILLER BLENDER): Resolved Acute on chronic respiratory failure with hypoxia and hypercapnia 07/15/2020 Assessment & Plan (07/15/2020 12:13 PM FILLER BLENDER): Resolved and the patient uses CPAP machine [...] asymptomatic. Assessment & Plan (07/15/2020 12:13 PM FILLER BLENDER): Repeat MRI in 1 month Elevated PSA 06/09/2020 Assessment & Plan (07/21/2024 9:56 AM FILLER BLENDER): PSA continued to be elevated at 6.9. [...] months Assessment & Plan (06/19/2021 12:53 PM FILLER BLENDER): PSA level is 3.3 Assessment & Plan (09/08/2020 12:52 PM CDT): PSA is 4.1. Patient is asymptomatic. Will repeat PSA Assessment & Plan (06/09/2020 2:26 PM FILLER BLENDER): PSA is slightly elevated at 4.1. Patient [...] 12/09/2019 Assessment & Plan (07/21/2024 7:50 AM FILLER BLENDER): Continue current medications. Discussed low-salt diet. Discussed [...] monitor Assessment & Plan (08/15/2023 3:58 PM FILLER BLENDER): Continue current medications. Discussed low-salt diet. Discussed exercise on regular basis. Will continue to monitor Assessment & Plan (05/15/2023 12:56 PM FILLER BLENDER): Continue current medications. Discussed low-salt diet. Discussed exercise on regular basis. Will continue to monitor Assessment & Plan (10/18/2022 12:52 PM CDT): Continue current medications. Discussed low-salt diet. Discussed exercise on regular basis. Will continue to monitor Assessment & Plan (07/23/2022 1:11 PM FILLER BLENDER): Continue current medications. Discussed low-salt diet. Discussed [...] monitor Assessment & Plan (06/19/2021 12:53 PM FILLER BLENDER): Continue current medications. Discussed low-salt diet. Discussed [...] monitor Assessment & Plan (06/09/2020 2:26 PM FILLER BLENDER): Continue current medications. Discussed low-salt diet. Discussed [...] right forearm which were diagnosed by the supply chain manager as scar tissues and he will follow-up with dermatology Assessment & Plan (12/09/2019 2:04 PM CDT): The patient has persistent lesion on the right forearm and will make a referral to see a supply chain manager for further evaluation Assessment & Plan (06/09/2019 2:11 PM FILLER BLENDER): The patient will be started on TMC [...] 11/13/2018 Assessment & Plan (07/23/2022 1:11 PM FILLER BLENDER): Controlled on Lyrica Assessment & Plan (03/22/2022 12:49 PM CDT): Controlled on Lyrica Assessment & Plan (12/20/2021 10:15 AM CDT): Controlled on Lyrica Assessment & Plan (09/19/2021 12:54 PM CDT): Controlled on Lyrica Assessment & Plan (06/19/2021 3:50 PM FILLER BLENDER): Controlled on Lyrica Assessment & Plan (12/12/2020 12:59 PM CDT): Controlled on Lyrica Assessment & Plan (03/10/2020 12:34 PM CDT): Stable on gabapentin Assessment & Plan (12/09/2019 2:03 PM CDT): Controlled on gabapentin Assessment & Plan (09/09/2019 2:37 PM CDT): Continue gabapentin Assessment & Plan (06/09/2019 2:11 PM FILLER BLENDER): Controlled on gabapentin Assessment & Plan (02/16/2019 [...] monitor. Assessment & Plan (05/15/2023 2:27 PM FILLER BLENDER): Hemoglobin A1c is 5.5. Stop glimepiride. Continue [...] monitor. Assessment & Plan (07/23/2022 5:01 PM FILLER BLENDER): Continue current medications, discussed low carbohydrate diet, [...] monitor. Assessment & Plan (06/19/2021 12:53 PM FILLER BLENDER): Continue current medications, discussed low carbohydrate diet, [...] monitor. Assessment & Plan (06/09/2020 2:25 PM FILLER BLENDER): Continue current medications, discussed low carbohydrate diet, advised to exercise on regular basis, advised to have annual eye exam. We will continue to monitor. Assessment & Plan (09/09/2019 2:37 PM CDT): As above Assessment & Plan (06/09/2019 2:11 PM FILLER BLENDER): Continue current medications, discussed low carbohydrate diet, [...] injections. Assessment & Plan (07/23/2022 5:02 PM FILLER BLENDER): Patient tried Viagra and Cialis and he [...] pain Assessment & Plan (06/09/2019 2:11 PM FILLER BLENDER): Patient has arthritis of the knees status post knee replacement. The patient was evaluated again by the orthopedic surgeon. He he takes Celebrex as needed. Allergic rhinitis 09/21/2015 Assessment & Plan (06/19/2021 12:52 PM FILLER BLENDER): Controlled on Zyrtec and Flonase Assessment & Plan (02/16/2019 8:53 PM CDT): Controlled on current medications Assessment & Plan (11/13/2018 3:08 PM CDT): Controlled on Zyrtec and Flonase GERD (gastroesophageal reflux disease) 6 Assessment & Plan (07/23/2022 1:10 PM FILLER BLENDER): Controlled on Prilosec Assessment & Plan (09/19/2021 12:53 PM CDT): Controlled on Prilosec Assessment & Plan (06/19/2021 3:50 PM FILLER BLENDER): Controlled on omeprazole Assessment & Plan (03/13/2021 3:19 PM CDT): Controlled on Prilosec Assessment & Plan (06/09/2019 2:10 PM FILLER BLENDER): Controlled on Prilosec Assessment & Plan (02/16/2019 [...] . Assessment & Plan (05/15/2023 12:56 PM FILLER BLENDER): Controlled on current medications. Continue low-fat diet. Will continue to monitor . Assessment & Plan (01/23/2023 1:11 PM CDT): Controlled on current medications. Continue low-fat diet. Will continue to monitor . Assessment & Plan (10/18/2022 12:53 PM CDT): Controlled on current medications. Continue low-fat diet. Will continue to monitor . Assessment & Plan (07/23/2022 1:10 PM FILLER BLENDER): Controlled on current medications. Continue low-fat diet. [...] . Assessment & Plan (06/19/2021 12:52 PM FILLER BLENDER): Controlled on current medications. Continue low-fat diet. [...] . Assessment & Plan (06/09/2020 2:26 PM FILLER BLENDER): Controlled on current medications. Continue low-fat diet. [...] . Assessment & Plan (06/09/2019 2:10 PM FILLER BLENDER): Controlled on current medications. Continue low-fat diet. [...] therapy Assessment & Plan (06/19/2021 3:50 PM FILLER BLENDER): Patient is not on hormonal therapy Assessment & Plan (06/09/2020 2:27 PM FILLER BLENDER): Patient is not on hormonal therapy Assessment & Plan (09/09/2019 2:36 PM CDT): The patient is not on hormonal therapy Assessment & Plan (06/09/2019 2:10 PM FILLER BLENDER): The patient uses hormonal gel every other [...] 08/07/2023 Assessment & Plan (05/15/2023 12:57 PM FILLER BLENDER): Continue to use CPAP machine on regular basis Assessment & Plan (01/23/2023 1:11 PM CDT): Continue to use CPAP machine on regular basis Assessment & Plan (10/18/2022 12:53 PM CDT): Continue to use CPAP machine on regular basis Assessment & Plan (07/23/2022 1:11 PM FILLER BLENDER): Continue to use CPAP machine on regular [...] basis Assessment & Plan (06/19/2021 12:54 PM FILLER BLENDER): Patient uses CPAP machine on regular basis [...] water pressure while sleeping. His DME is [employer]. Assessment & Plan (07/15/2020 12:13 PM FILLER BLENDER): Patient uses CPAP machine now on regular [...] order for supplies. The DME company is [employer]. The patient and I also discussed the [...] basis Assessment & Plan (06/09/2019 2:10 PM FILLER BLENDER): The patient is compliant with CPAP machine Assessment & Plan (02/16/2019 8:56 PM CDT): The patient uses CPAP machine on regular basis Assessment & Plan (11/13/2018 3:09 PM CDT): The patient is compliant with CPAP machine Immunizations Immunization Administration Dates Next Due Influenza, Quadrivalent, Hig h Dose, Preservative Free, Intrr 05/13/2023,03/22/2022,03/13/2021,03/10 Influenza, Quadrivalent, Spl it, Intramuscular 04/08/2017,04/09/2016 Influenza, Trivalent, High D ose, Split, Preservative Free, Intramuscular 04/20/2024,06/09/2019,04/24/2018 Pfizer SARS-CoV-2 Monovalent Vaccination (12+ Yrs) PURPLE 09/16/2020,08/28/2020 Pneumococcal Conjugate PCV 13 12/09/2019 Pneumococcal Polysaccharide PPV23 07/08/2017 RSV, Bivalent, Protein Subun it Rsvpref, Diluent (Abrysvo) 05/13/2023 Tdap 10/31/2022 ZOSTER Recombinant 11/20/2023,09/10/2023, 018 Social History Tobacco Use Types Packs/Day Years [...] on file Legal Sex Male 1:24 AM FILLER BLENDER Gender Identity Male 08/11/2020 3:44 PM FILLER BLENDER Sexual Orientation Straight 08/11/2020 3: 44 PM FILLER BLENDER Last Filed Vital Signs Vital Sign Reading Time Taken Comments Blood Pressure 118/76 08/28/2024 10:13 AM FILLER BLENDER Pulse 52 08/28/2024 10:13 AM FILLER BLENDER Temperature 36.6 C (97.9 F) 08/28/2024 10:13 AM FILLER BLENDER Respiratory Rate 18 08/28/2024 10:13 AM FILLER BLENDER Oxygen Saturation 99% 08/28/2024 10:13 AM FILLER BLENDER Inhaled Oxygen Concentration - - Weight 110 kg (242 lb 9.6 oz) 08/28/2024 10:13 A M FILLER BLENDER Height 167.6 cm (5' 6 ) 08/28/2024 10:13 AM FILLER BLENDER Body Mass Index 39.16 08/28/2024 10:13 AM FILLER BLENDER Plan of Treatment Not on file Procedures Procedure Name Priority Date/Time Associated Diagnosis Comments EGFR Routine 07/17/2024 12:49 PM FILLER BLENDER Dyslipidemia LIPID PANEL Routine 07/17/2024 12:49 PM FILLER BLENDER Diabetic polyneuropathy associated with type 2 diabetes mellitus (HCC) HEMOGLOBIN A1C Routine 07/17/2024 12:49 PM FILLER BLENDER Diabetic polyneuropathy associated with type 2 diabetes mellitus (HCC) Dyslipidemia COMPREHENSIVE METABOLIC PANEL Routine 07/17/2024 12:49 PM FILLER BLENDER Dyslipidemia PSA SCREEN Routine 07/17/2024 12:49 PM FILLER BLENDER Elevated PSA DIABETES EYE EXAM Routine 05/27/2024 11:27 AM FILLER BLENDER ALBUMIN CREATININE RATIO, URINE Routine 12/06/2023 12:52 PM CDT Diabetes mellitus with stage 1 chronic kidney disease (HCC) COLONOSCOPY Routine 10/21/2023 3:05 PM CDT DIABETES FOOT EXAM Routine 02/20/2023 HEPATITIS C ANTIBODY Routine 06/06/2020 1:01 PM FILLER BLENDER Encounter for hepatitis C screening test for low risk patient from Last 3 Months or Most Recently Relevant to Health Maintenance Results * eGFR (07/17/2024 12:49 PM FILLER BLENDER) eGFR 73 >=60 mL/min/1. 73 m2 Comment: [...] reviewed 2021. Blood 07/17/2024 12:4 9 PM FILLER BLENDER 07/17/2024 12:52 PM FILLER BLENDER Sergei Mello MD LAB BLOOD ORDERABLES Final Result [facility] [address] [facility] Department [place] [address] * (ABNORMAL) PSA screen (07/17/2024 12:49 PM FILLER BLENDER) PSA-Total 6.97(H) <=6.20 ng/mL Comment: Interpretive Data [...] revised 21. Blood 07/17/2024 12:4 9 PM FILLER BLENDER 07/17/2024 12:52 PM FILLER BLENDER Sergei Mello MD LAB BLOOD ORDERABLES Final Result Performing Organization Address [facility] de Phone Number [address] [address] * (ABNORMAL) Hemoglobin A1c (07/17/2024 12:49 PM FILLER BLENDER) Pathologist [facility] Hgb A1C 5.7(H) 4.0 - 5.6 % Estimated Average Glucose 117 mg/dL [facility] Comment: The ADA recommends reporting an estimated Average Glucose (eAG) with all Hemoglobin A1c results using the equation derived from a study of 507 normal and diabetic adults. Minority populations were underrepresented and children were not included. (Diabetes Care 31:5391-9452, 2008). The eAG is not equivalent to a fasting glucose. Blood 07/17/2024 12:4 9 PM FILLER BLENDER 07/17/2024 12:52 PM FILLER BLENDER Sergei Mello MD LAB BLOOD ORDERABLES Final Result Performing Organization Address [facility] de Phone Number [address] [address] * Lipid panel (07/17/2024 12:49 PM FILLER BLENDER) [facility] Cholesterol 125 30 - 199 mg/dL Comment: [...] on 2018. HDL 50 >=40 mg/dL [facility]LEXE[facility] Comment: Interpretive Data Ages < [...] 2018. LDL, calculated 58 <=129 mg/dL [facility] Comment: Interpretive Data Ages < [...] 3. Danny Valiente et al. RADHA Cardiol. 2020 October 22;5(5):540-548. doi: 10.1001/jamacardio.2020.0013 Current Interpretive Data was last revised on 2024. Non-HDL Cholesterol 75 mg/dL [facility] Comment: Interpretive Data Ages < [...] last revised on 2018. Chol/HDL ratio 2 [facility] Blood 07/17/2024 12:4 9 PM FILLER BLENDER 07/17/2024 12:52 PM FILLER BLENDER Narrative [facility] - 07/17/2024 1:29 PM FILLER BLENDER Has the patient been fasting for 8 hours or more?->Yes Sergei Mello MD LAB BLOOD ORDERABLES Final Result [facility] [address] [facility] Department [place] [address] * (ABNORMAL) Comprehensive metabolic panel (07/17/2024 12:49 PM FILLER BLENDER) Pathologist [facility] Sodium 141 135 - 145 mmol/L Potassium, pl 4.2 3.3 - 4.9 mmol/L [facility] Chloride 103 97 - 110 mmol/L [facility] CO2 28 22 - 32 mmol/L [facility] Anion gap 10 2 - 15 mmol/L [facility] BUN 14 6 - 25 mg/dL [facility] Creatinine 1.08 0.80 - 1.30 mg/dL [facility] Glucose 103 70 - 199 mg/dL [facility] Comment: Interpretive Data Fasting glucose >/= 126 [...] classification and Diagnosis of Diabetes Diabetes Care 2021; 46: S19-S40. Current interpretive data was last revised 2022. Calcium 10.4(H) 8.5 - 10.3 mg/dL [facility] Bilirubin, total 0.7 0.1 - 1.2 mg/dL [facility] Protein, pl 7.4 6.5 - 8.5 g/dL [facility] Albumin 4.5 3.5 - 5.0 g/dL [facility] Alk phos 88 40 - 130 Units/L [facility] ALT 18 7 - 55 Units/L [facility] AST 24 10 - 50 Units/L [facility] Blood 07/17/2024 12:4 9 PM FILLER BLENDER 07/17/2024 12:52 PM FILLER BLENDER Sergei Mello MD LAB BLOOD ORDERABLES Final Result Performing Organization Address City/[facility]/ZIP Co de Phone Number A[facility] [address] [place] [address] * DIABETES EYE EXAM (05/27/2024 11:27 AM FILLER BLENDER) SCRIBED DIABETIC DILATED EYE EXAM Normal Johnson Provider HEALTH MAINTENANCE Final Result * Albumin Creatinine Ratio, Urine (12/06/2023 12:52 PM CDT) Albumin Ur 17.2 mg/L Comment: Interpretive Data No reference range established. Current interpretive data was last revised 2018. Creatinine Ur 295.0 mg/dL [facility] Comment: Interpretive Data No reference range established. Current interpretive data was last revised 2018. Albumin Creatinine Ratio, Ur 6 1 - 29 mg/g [facility] Urine 12/06/2023 12:5 2 PM CDT 12/06/2023 1:21 PM CDT Sergei Mello MD LAB URINE ORDERABLES Final Result [address] [employer] [place] [address] * Colonoscopy (10/21/2023 3:05 PM CDT) Anatomical Region Laterality Modality Other Historical Provider ENDOSCOPY PROCEDURES Jennifer l Result * (ABNORMAL) DIABETES FOOT EXAM (02/20/2023) Impressions Ted Lerma - 02/20/[address] of [address] Lee Historical Provider HEALTH MAINTENANCE Final Result * Hepatitis C antibody (06/06/2020 1:01 PM FILLER BLENDER) Hep C Ab NONREACT NONREACTIVE [facility] Comment: Siemens CentaurXP using DANIELLE (chemiluminescent immunoassay) [...] method. Blood specimen (specimen) 06/06/2020 1:01 PM FILLER BLENDER 06/06/2020 1:19 PM FILLER BLENDER Narrative Resulting Agency Comment CLI Sergei Mello MD LAB MICROBIOLOGY - GENERAL ORDERABLES Final Result [facility] [address] [place] [address], [facility] [phone] from Last 3 Months or Most Recently Relevant to Health Maintenance Insurance MEDICARE FOR LIFE FOR LIFE [employer] CHOICE MEDICARE PPO MEDICARE [facility] Care Teams Marklogic Developer Relationship Specialty Start Date End Date Sergei Mello MD [address] [facility] [address] [place] [id number] PCP - General 08/12/18
--- OUTSIDE RECORDS SUMMARY | 2024-09-21 13:24 | XMS_ITS | Clinical Summary ---
Author Organization [facility] Address [facility] [place] [address] Care Team Providers Care Speck Dyer Name Role Phone Sergei Mello MD Primary Care Provider [phone] Allergies Active Allergy Reactions Criticality Noted Date Comments Propoxyphene Other (see comment) 01/05/2021 Dry mouth Hydrocodone-Acetaminophen Unknown 09/24/2018 Morphine Other (see comment) Low 02/17/2019 Scratching Oxycodone Other (see comment) Low 09/24/2018 Scratching Penicillin V Palpitations Low 09/24/2018 Medications allopurinol 300 MG tablet 1 Active ALPRAZolam 0.5 MG tablet 1 Active celecoxib 200 MG capsule 1 Active cetirizine 10 MG tablet 1 Active clobetasol 0.05 % ointment 0 Active docusate sodium 100 MG capsule 1 Active fenofibrate 160 MG tablet 1 Active fluticasone propionate 50 MCG/ACT nasal spray 1 Active LINZESS 290 MCG capsule 1 Active Alcohol Swabs (EASY TOUCH ALCOHOL PREP MEDIUM) 70 % Pads 0 Active FREESTYLE LITE test strip 0 Active Lancets (FREESTYLE) lancets 0 Active montelukast 10 MG tablet 1 Active omeprazole 40 MG capsule 1 Active pramipexole 0.5 MG tablet 1 Active pregabalin 150 MG capsule 1 Active Bacillus Coagulans-Inuli n (PROBIOTIC FORMULA) 1-250 BILLION-MG Cap 1 Active REFRESH CELLUVISC 1 % ophthalmic gel 0 Active simvastatin 40 MG tablet 1 Active JANUVIA 100 MG tablet 1 Active Telmisartan-HCT Z 80-12.5 MG Tab 1 Active traMADol 50 MG tablet 1 Active zolpidem 10 MG tablet 1 Active aspirin EC 81 MG tablet Take 81 mg by mouth daily. Active chlorproMAZINE 25 MG tablet Take 25 mg by mouth 3 (three) times daily. Active vitamin D3, cholecalciferol , 1000 UNIT Tab tablet Take 1 tablet by mouth daily. Active glimepiride 2 MG tablet Take 2 mg by mouth every morning before breakfast. Active ketoconazole 2 % shampoo Apply topically twice a week. Active Psyllium (NATURAL FIBER LAXATIVE OR) Active sildenafil 100 MG tablet Take 100 mg by mouth daily as needed. Active LOTEMAX 0.5 % ophthalmic gel 1 Active Active Problems Problem Noted Date Diagnosed Date Periprosthetic fracture of patella, initial enco unter 01/05/2021 Family History Medical History Relation Comments Cancer Brother Dementia Father Heart Father Heart Mother Diabetes Sister 1 Diabetes Sister 2 Relation Status Comments Brother Father Mother Sister 1 Sister 2 Social History Tobacco Use Types Packs/Day Years Used Date Smoking Tobacco: Never Smokeless Tobacco: Never Tobacco Cessation:Counseling Given: No PHQ-2 Answer Date Recorded PHQ-2 Score - If the patient scores above 3, please move on to questions 3-9 0 01/05/2021 Sex and Gender Information Value Date Recorded Sex Assigned at Not on file Legal Sex Male 4:17 PM CDT Gender Identity Not on file Sexual Orientation Not on file Last Filed Vital Signs Vital Sign Reading Time Taken Comments Blood Pressure 116/64 01/05/2021 2:16 PM CDT Pulse 70 01/05/2021 2:16 PM CDT Temperature 36.3 C (97.4 F) 01/05/2021 2:16 PM CDT Respiratory Rate - - Oxygen Saturation - - Inhaled Oxygen Concentration - - Weight 120.5 kg (265 lb 9.6 oz) 01/05/2021 2:16 PM CDT Height 168.9 cm (5' 6.5 ) 01/05/2021 2:16 PM CDT Body Mass Index 42.23 01/05/2021 2:16 PM CDT Plan of Treatment Health Maintenance Due Date Last Done Comments Colorectal Cancer Screening Colonoscopy (10 Years) 1950 Hepatitis C 1970 Annual Medicare Wellness Visit 2017 Zoster Vaccines (2 of 2) 09/02/2017 07/08/2017 COVID-19 Vaccine (3 - season) 2024 09/16/2020, 08/28/2020 Influenza Adult (#1) 2024 03/10/2020, 06/09/2019, 04/24/2018, Additional history exists DTaP, Tdap and Td Vaccines (2 - Td or Tdap) 10/31/2032 10/31/2022 Pneumococcal Vaccine: 65+ Years Completed 12/09/2019, 07/08/2017 RSV Immunization or 60+ Years Completed 05/13/2023 Meningococcal B Vaccine Aged Out No l onger eligible based on patient's age to complete this topic Meningococcal Vaccine Aged Out No jd radha eligible based on patient's age to complete this topic RSV Immunizations Under 20 Months Aged Out No longer eligible based on patient's age to complete this topic Insurance [facility] MEDICARE Care Teams Speck Dyer Relationship Specialty Start Date End Date Sergei Mello MD [address] [place] [id number] PCP - General 09/11/12
--- OUTSIDE RECORDS SUMMARY | 2024-09-21 13:24 | XMS_ITS | Encounter Summary ---
Author Organization [facility] Facility Care Team Providers Care Power Generation Turbine Room Operator Name Role Phone Sergei Mello MD Primary Care Provider Tressa Araiza [facility] Unavailable [phone] Encounter Details Date Type Department Care Team (Latest Contact Info) Description 04/21/2016 Orders Only [facility] CLINCONV Provider, MD Johnson [address] [place] [id number] Social History Tobacco Use Types Packs/Day Years Used Date Smoking Tobacco: Never Assessed Sex and Gender Information Value Date Recorded Sex Assigned at Not on file Legal Sex Male 1:24 AM ASSEMBLER DC FIELD RING Gender Identity Male 08/11/2020 3:44 PM ASSEMBLER DC FIELD RING Sexual Orientation Straight 08/11/2020 3: 44 PM ASSEMBLER DC FIELD RING documented as of this encounter Plan of Treatment Not on file documented as of this encounter Procedures Procedure Name Priority Date/Time Associated Diagnosis Comments SCAN - LABS 08/09/2016 12:00 AM ASSEMBLER DC FIELD RING documented in this encounter Results * SCAN - LABS (08/09/2016 12:00 AM ASSEMBLER DC FIELD RING) Narrative 08/09/2016 12:00 AM ASSEMBLER DC FIELD RING Ordered by an unspecified provider. us Historical Provider Final Res ult documented in this encounter Visit Diagnoses Not on filedocumented in this encounter Care Teams Power Generation Turbine Room Operator Relationship Specialty Start Date End Date Sergei Mello MD [address] [place] [address] PCP - General 08/12/18 Tressa Araiza, [facility] [address] [place] [address] ACO Care Full Time 07/08/20 07/14/20 documented as of this encounter
--- OUTSIDE RECORDS SUMMARY | 2024-09-21 13:24 | XMS_ITS | Encounter Summary ---
Author Organization [facility] Facility Care Team Providers Care Billet Examiner Name Role Phone Sergei Mello MD Primary Care Provider [phone] Tressa Araiza [facility] Unavailable [phone] Encounter Details Date Type Department Care Team (Latest Contact Info) Description 01/15/2017 Orders Only [facility] CLINCONV ProviderJohnson MD [address] [place] [address] Social History Tobacco Use Types Packs/Day Years Used Date Smoking Tobacco: Never Assessed Sex and Gender Information Value Date Recorded Sex Assigned at Not on file Legal Sex Male 1:24 AM DIESEL TRAILER MECHANIC Gender Identity Male 08/11/2020 3:44 PM DIESEL TRAILER MECHANIC Sexual Orientation Straight 08/11/2020 3: 44 PM DIESEL TRAILER MECHANIC documented as of this encounter Plan of Treatment Not on file documented as of this encounter Procedures Procedure Name Priority Date/Time Associated Diagnosis Comments PROCEDURE - RESULT 01/17/2017 12 :00 AM CDT documented in this encounter Results * PROCEDURE - RESULT (01/17/2017 12:00 AM CDT) Narrative 01/17/2017 12:00 AM CDT Ordered by an unspecified provider. Historical Provider Final Res ult documented in this encounter Visit Diagnoses Not on filedocumented in this encounter Care Teams Billet Examiner Relationship Specialty Start Date End Date Sergei Mello MD [address] [place] [address] PCP - General 08/12/18 Tressa Araiza, CLINICAL DENTAL TECHNICIAN [address] [place] [address] ACO Care Mud Engineer 07/08/20 07/14/20 documented as of this encounter
--- OUTSIDE RECORDS SUMMARY | 2024-09-21 13:24 | XMS_ITS | Encounter Summary ---
Author Organization [facility] Facility Care Team Providers Care Stove Polisher Name Role Phone Sergei Mello MD Primary Care Provider Tressa Araiza [facility] Unavailable [phone] Encounter Details Date Type Department Care Team (Latest Contact Info) Description 09/21/2015 Orders Only [facility] CLINCONV Provider, MD Johnson [address] [place] [address] Social History Tobacco Use Types Packs/Day Years Used Date Smoking Tobacco: Never Assessed Sex and Gender Information Value Date Recorded Sex Assigned at Not on file Legal Sex Male 1:24 AM COMMUNICATIONS ASSOCIATE Gender Identity Male 08/11/2020 3:44 PM COMMUNICATIONS ASSOCIATE Sexual Orientation Straight 08/11/2020 3: 44 PM COMMUNICATIONS ASSOCIATE documented as of this encounter Plan of Treatment Not on file documented as of this encounter Procedures Procedure Name Priority Date/Time Associated Diagnosis Comments SCAN - LABS 09/21/2015 12:00 AM CDT documented in this encounter Results * SCAN - LABS (09/21/2015 12:00 AM CDT) Narrative 09/21/2015 12:00 AM CDT Ordered by an unspecified provider. us Historical Provider Final Res ult documented in this encounter Visit Diagnoses Not on filedocumented in this encounter Care Teams Stove Polisher Relationship Specialty Start Date End Date Sergei Mello MD [address] [place] [address] PCP - General 08/12/18 Tressa Araiza, SHOP TEACHER [address] [place] [address] ACO Care Project Leader 07/08/20 07/14/20 documented as of this encounter
--- OUTSIDE RECORDS SUMMARY | 2024-09-21 13:24 | XMS_ITS | Encounter Summary ---
Author Organization [facility] Care Team Providers Care Jackhammer Splitter Operator Name Role Phone Sergei Mello MD Primary Care Provider [phone] Tressa Araiza [facility] Unavailable [phone] Encounter Details Date Type Department Care Team (Latest Contact Info) Description 07/23/2016 Orders Only [facility] CLINCONV Provider, MD Johnson [address] [place] [address] Social History Tobacco Use Types Packs/Day Years Used Date Smoking Tobacco: Never Assessed Sex and Gender Information Value Date Recorded Sex Assigned at Not on file Legal Sex Male 1:24 AM TEACHER OF GIFTED STUDENTS Gender Identity Male 08/11/2020 3:44 PM TEACHER OF GIFTED STUDENTS Sexual Orientation Straight 08/11/2020 3: 44 PM TEACHER OF GIFTED STUDENTS documented as of this encounter Plan of Treatment Not on file documented as of this encounter Procedures Procedure Name Priority Date/Time Associated Diagnosis Comments SCAN - LABS 07/23/2016 12:00 AM TEACHER OF GIFTED STUDENTS documented in this encounter Results * SCAN - LABS (07/23/2016 12:00 AM TEACHER OF GIFTED STUDENTS) Narrative 07/23/2016 12:00 AM TEACHER OF GIFTED STUDENTS Ordered by an unspecified provider. us Historical Provider Final Res ult documented in this encounter Visit Diagnoses Not on filedocumented in this encounter Care Teams Jackhammer Splitter Operator Relationship Specialty Start Date End Date Sergei Mello MD [address] [place] [address] PCP - General 08/12/18 Tressa Araiza, [facility] [address] [place] [address] ACO Care Lead Massage Therapist 07/08/20 07/14/20 documented as of this encounter
--- OUTSIDE RECORDS SUMMARY | 2024-09-21 13:24 | XMS_ITS | Encounter Summary ---
Author Organization [facility] Address [address] [place] [address] Care Team Providers Care Covering Machine Operator Name Role Phone Unavailable Primary Care Provider Unavailabl e Encounter Details Date Type Department Care Team (Late st Contact Info) Description 10/12/2021 Lab Requisition [facility] DermPath Lab [address] [facility] [place] [id number] Jesus Sanchez MD [address] [place] [address] Social History Tobacco Use Types Packs/Day Years Used Date Smoking Tobacco: Never Assessed Sex and Gender Information Value Date Recorded Sex Assigned at Not on file Gender Identity Not on file Sexual Orientation Not on file documented as of this encounter Plan of Treatment Not on file documented as of this encounter Procedures Procedure Name Priority Date/Time Associated Diagnosis Comments DERMATOPATHOLOGY Routine 10/10/2021 12:0 0 AM CDT documented in this encounter Results * DERMATOPATHOLOGY (10/10/2021 12:00 AM CDT) Case Report Dermatopathology Report Case: [id number] Authorizing Provider: Jesus Sanchez MD Collected: 10/10/2021 12:00 AM Ordering Location: [facility] DermPath Lab Received: 10/12/2021 09:14 AM Pathologist: Hope Hanson MD Specimen: Skin, right fa 2 4:05 PM CDT DERMATOPATHOLOGY LABORATORY Final Diagnosis Specimen A. SKIN, right fa: PRURIGO NODULARIS (L28.1) 2 4:05 PM CDT DERMATOPATHOLOGY LABORATORY Clinical History LP vs. PN vs. Other. Path# [id number] 2 4:05 PM CDT DERMATOPATHOLOGY LABORATORY Gross Description Specimen A: Received is one formalin filled container labeled with the patient's name and designated right fa. The specimen consists of a shave biopsy measuring [id number]. Jar 0. 2 4:05 PM [facility] DERMATOPATHOLOGY LABORATORY Microscopic Description Specimen A. SKIN, right fa: There is a dome-shaped portion of skin with psoriasiform epidermal hyperplasia, compact hyperkeratosis, and fibrosis of the papillary dermis associated with a superficial perivascular lymphohistiocytic infiltrate. 2 4:05 PM T DERMATOPATHOLOGY LABORATORY Disclaimer An external and internal positive and negative controls are appropriate for the histochemical, immunohistochemical and immunofluorescence stain(s) in this case (if any), except where stated explicitly. The performance characteristics of the stain(s) cited in this report were developed and its performance characteristic determined by the Dermatopathology Laboratory at [facility], directed by Dr. Octavio Maravilla. These tests need not be, and therefore are not, approved by the [place] Food and Drug Administration. The tests are used for clinical purposes. Billing Codes Specimen Charges Stain Charges 75858 1 2 4:05 PM CDT DERMATOPATHOLOGY LABORATORY Embedded Images 2 4:05 PM T DERMATOPATHOLOGY LABORATORY Pathology/Cytolog y TISSUE SPECIMEN FROM SKIN / Unknown 10/10/2021 10/12/2021 9:14 AM CDT Jesus Sanchez MD LAB - PATHOLOGY/CYTO LOGY ORDERABLES DERMATOPATHOLOGY LABORATORY [facility] - Department of Dermatology [address] [phone] documented in this encounter Visit Diagnoses Not on filedocumented in this encounter
== END 2024-09-21 12:02 | disposition home or self-care (01) ==
LOC: ANHIMG 12:11
PROVIDERS: PCP Internal Medicine; Visit Provider Urology
DX: C61 Malignant neoplasm of prostate (principal)
CPT/HCPCS: 78815; A9596